=== PATIENT | male | born 1960 | race Caucasian/White ===

== ENCOUNTER 2022-01-05 08:11 | Emergency (ER) | payer SELFPAY ==
[~2022-01-05] VITALS: Ht 177.8 cm; Wt 90.3 kg
--- NOTE | 2022-01-05 08:11 | NUR ---
Patient BIBA to bed 09 at this time.
[2022-01-05 08:19] VITALS: BP 141/74
[2022-01-05] MEDS ORDERED: SPIR50TA PO (09:09)
[2022-01-05] MEDS ORDERED: FURO-572 PO (09:09)
--- NOTE | 2022-01-05 09:20 | NUR ---
61/M KAROLINE FROM [facility]. PER EMS PATIENT HAD 911 CALLED STATING ABDOMINAL PAIN AND DISTENTION X4 DAYS. PATIENT ADMITS EXTENSIVE HISTORY OF ALCOHOL ABUSE, STATING LAST DRINK WAS ONE WEEK AGO. PATIENT DENIES N/V/D, REPORTS HX OF RECEIVING A PARACENTESIS. PATIENT DENIES CP, SOB OR URINARY SYMPTOMS. ABDOMEN APPEARS DISTENDED AND FIRM, PATIENT REPORTS 8/10 PAIN THAT WORSENS WTH MOVEMENT.
[2022-01-05 09:40] VITALS: BP 115/67
--- NOTE | 2022-01-05 09:41 | NUR ---
Patient discharged with v/s stable. Written and verbal after care instructions given FOR ASCITES and explained. Patient alert, oriented and verbalized understanding of instructions. Ambulatory with steady gait. All questions addressed prior to discharge. ID band removed. Patient advised to follow up with PMD. Rx of LASIX AND SPIRONLACTONE given. Patient educated on indication of medication including possible reaction and side effects. Opportunity to ask questions provided and answered.
== END 2022-01-05 09:41 | disposition home or self-care (01) ==
LOC: MED 08:11
DX: K70.31 Alcoholic cirrhosis of liver with ascites (principal); K42.9 Umbilical hernia without obstruction or gangrene; Z79.899 Other long term (current) drug therapy
CPT/HCPCS: 49083; 99285

== ENCOUNTER 2022-01-08 17:42 | Inpatient (IN) | payer MEDICAID ==
[~2022-01-08] VITALS: Ht 177.8 cm; Wt 89.8 kg
[~2022-01-08 17:42] MED LIST: FURO-572 PO; SPIR50TA PO
[2022-01-08 17:50] VITALS: BP 94/85
[2022-01-08] MEDS ORDERED: FURO-572 PO (18:14)
[2022-01-08] MEDS ORDERED: SPIR50TA PO (18:14)
[2022-01-08 19:04] LABS: BASOPHILS # (AUTO) 0.1 K/uL (0.00-0.22); BASOPHILS % (AUTO) 1.2 % (0.0-2.0); EOSINOPHILS # (AUTO) 0.2 K/uL (0-0.4); EOSINOPHILS % (AUTO) 1.5 % (0.0-4.0); LYMPHOCYTES % (AUTO) 8.7 % (20.5-51.1); MEAN CORPUSCULAR HEMOGLOBIN 38 pg (27-31); MEAN CORPUSCULAR HGB CONC 34 g/dL (33-37); MEAN CORPUSCULAR VOLUME 111.3 fL (80-94); MONOCYTES # (AUTO) 0.7 K/uL (0.8-1.0); MONOCYTES % (AUTO) 6.1 % (1.7-9.3); NEUTROPHILS # (AUTO) 9.1 K/uL (1.8-7.7); NEUTROPHILS % (AUTO) 82.5 % (42.2-75.2); PLATELET COUNT (AUTO) 91 K/uL (140-450); RED BLOOD CELL COUNT(AUTO) 1.57 MIL/uL (4.20-6.10); RED CELL DISTRIBUTION WIDTH 19.7 % (11.6-13.7)
[2022-01-08 19:07] LABS: HEMATOCRIT 17.5 % (36-52); HEMOGLOBIN 5.9 g/dL (12.0-18.0)
--- NOTE | 2022-01-08 19:09 | NUR ---
Dr. Francisco examining patient.
--- NOTE | 2022-01-08 19:12 | NUR ---
NOTIFIED RAD DEPT OF STAT CT PER DR. IRAHETA
--- NOTE | 2022-01-08 19:17 | NUR ---
PT TAKEN TO CT
[2022-01-08 19:20] LABS: ALBUMIN 1.4 g/dL (3.4-5.0); ANION GAP 9.5 (8-16); CARBON DIOXIDE 21.7 mmol/L (21-32); POTASSIUM 3.2 mmol/L (3.5-5.1); PROTHROMBIN TIME 20.4 secs (10.8-13.4); TOTAL BILIRUBIN 8.2 mg/dL (0.0-1.0)
--- NOTE | 2022-01-08 19:24 | NUR ---
Pt report given to Karl BUENROSTRO. Transfer of care at this time.
--- NOTE | 2022-01-08 19:25 | NUR ---
61 y/o male, homeless, biba for abd pain and distention. pt was prevously seen here on 01/05/22 for same s/s, pt states his puncture wound where he had abd drained opened and started to bleed. en route ems reports 56cc blood loss. skin is yellow/warm/dry. a&o x4, unable to ambulate at this time. lungs clear bl, heart rate even and regular. pt denies any fever, cp, sob, or cough at this time. pt states pain is 10/10 at this time. patient positioned for comfort. hob elevated. bed down. ermd made aware of pt. ns 0.9 1000ml bolus given enroute through 18g Left AC. pmh: chronic etoh use, cirrhosis nka med: lasix 20mg, aldactone 50mg
--- NOTE | 2022-01-08 19:31 | NUR ---
PT BACK FROM CT
[2022-01-08] MEDS ORDERED: OCTREOTIDE ACETATE 100 MCG/ML VIAL IV STA (19:58)
[2022-01-08] MEDS ORDERED: PHYTONADIONE 10 MG in NACL 0.9% 50 ML IV ONE (20:00)
[2022-01-08] MEDS ORDERED: PANTOPRAZOLE 40 MG INJ VIAL IVP ONE (20:00)
[2022-01-08] MEDS ORDERED: OCTREOTIDE ACETATE 1.25 MG in NACL 0.9% 250 ML IV SCH (20:00)
--- NOTE | 2022-01-08 20:13 | NUR ---
COVID/SUNDAR SWAB COLLECTED AND WALKED TO LAB
--- NOTE | 2022-01-08 20:14 | NUR ---
BLOOD TRANFUSION CONSENT SIGNED
--- NOTE | 2022-01-08 20:19 | NUR ---
[facility] AT BEDSIDE
--- NOTE | 2022-01-08 20:36 | NUR ---
Patient will be admitted to care of DR PEREZ. Admited to ICU. Will go to room 1. Belongings list completed. Report to PORTER BARRY.
[2022-01-08 20:38] LABS: BASOPHILS # (AUTO) 0.1 K/uL (0.00-0.22); BASOPHILS % (AUTO) 0.6 % (0.0-2.0); EOSINOPHILS # (AUTO) 0.2 K/uL (0-0.4); EOSINOPHILS % (AUTO) 1.4 % (0.0-4.0); LYMPHOCYTES # (AUTO) 1.6 K/uL (2.0-11.5); LYMPHOCYTES % (AUTO) 14.2 % (20.5-51.1); MEAN CORPUSCULAR HEMOGLOBIN 38 pg (27-31); MEAN CORPUSCULAR HGB CONC 34 g/dL (33-37); MONOCYTES # (AUTO) 0.9 K/uL (0.8-1.0); MONOCYTES % (AUTO) 8.2 % (1.7-9.3); NEUTROPHILS # (AUTO) 8.5 K/uL (1.8-7.7); NEUTROPHILS % (AUTO) 75.6 % (42.2-75.2); PLATELET COUNT (AUTO) 95 K/uL (140-450); RED BLOOD CELL COUNT(AUTO) 1.48 MIL/uL (4.20-6.10); RED CELL DISTRIBUTION WIDTH 18.9 % (11.6-13.7); WHITE BLOOD COUNT (AUTO) 11.3 K/uL (4.8-10.8)
[2022-01-08] MEDS ORDERED: DOCUSATE SODIUM 100 MG GELCAP PO PRN (20:40)
[2022-01-08] MEDS ORDERED: ACETAMINOPHEN 325 MG TAB PO PRN (20:40)
[2022-01-08] MEDS ORDERED: ONDANSETRON 4 MG/2 ML VIAL IM/IVP PRN (20:40)
[2022-01-08] MEDS ORDERED: ZOLPIDEM 5 MG TAB PO PRN (20:40)
[2022-01-08] MEDS ORDERED: guaiFENesin DM 200/20 MG-10 ML 10 ML UDC PO PRN (20:40)
[2022-01-08] MEDS ORDERED: POTASSIUM CHLORIDE 10 MEQ TABER PO PRN (20:40)
[2022-01-08] MEDS ORDERED: HYDROcodone/APAP 7.5/325 MG 1 TAB PO PRN (20:40)
--- NOTE | 2022-01-08 20:50 | NUR ---
PT ARRIVED TO ICU BED 1, TRANSFERRED FROM ED VIA GURNEY ACCOMPANIED BY EMT AND RN, BEDSIDE REPORT RECEIVED, ASSUMED CARE. PT IN NO APPARENT ACUTE DISTRESS, AOX4, PERRLA, BRISK +3MM, BREATHING AT RA WITH BILATERAL EVEN LUNG EXPANSION, CLEAR BREATH SOUNDS UPON AUSCULTATION. BILATERAL 18 G AC PRESENT. SKIN NON INTACT WITH OPEN NON HEALING WOUND TO RIGHT ABDOMINAL AREA WHERE PT HAD PARACENTESIS DONE A FEW DAYS AGO, MULTIPLE SCABS IN BLE WHICH PT ADMITS TO PREVIOUS DRUG USE WITH IV DRUGS, PT ALSO STATES HE SMOKES OTHER DRUGS THAT ARE "NEW" BUT DOES NOT RECALL WHAT THEY ARE. JAUNDICED SKIN NOTED THROUGHOUT THE BODY INCLUDING SCLERAS. PT CONTINENT. PROVIDED PT WITH BED BATH, ALL COMFORT MEASURES OFFERED. ALL SAFETY MEASURES IN PLACE, CALL LIGHT WITHIN REACH, BED LOCKED AT LOWEST POSITION. WILL CONTINUE TO CLOSELY MONITOR AND FOLLOW POC.
[2022-01-08 20:55] LABS: PROTHROMBIN TIME 19.6 secs (10.8-13.4)
[2022-01-08 21:00] VITALS: BP 87/48
[2022-01-08] MEDS: NACL 0.9% 1,000 ML IV SCH (21:00)
[2022-01-08 21:04] LABS: HEMATOCRIT 16.5 % (36-52); HEMOGLOBIN 5.6 g/dL (12.0-18.0)
[2022-01-08 21:07] LABS: ANION GAP 10.9 (8-16); CARBON DIOXIDE 22.4 mmol/L (21-32); POTASSIUM 3.3 mmol/L (3.5-5.1)
[2022-01-08] MEDS ORDERED: PANTOPRAZOLE 40 MG INJ VIAL ONE (21:12)
[2022-01-08] MEDS: PANTOPRAZOLE 80 MG in NACL 0.9% 100 ML IVP SCH (21:21)
[2022-01-08 21:23] LABS: AMYLASE 75 U/L (25-115); CHOL/HDL RATIO 2.4 (1-4.5); FREE T4 (FREE THYROXINE) 1.18 ng/dL (0.76-1.46); HDL CHOLESTEROL 20 mg/dL (40-60); LDL (CALC) 20 mg/dL (60-100); LIPASE 112 U/L (73-393); MAGNESIUM 1.9 mg/dL (1.8-2.4); PHOSPHORUS 3.3 mg/dL (2.5-4.9); THYROID STIMULATING HORMONE 1.59 uIU/mL (0.34-3.74); TRIGLYCERIDES 39 mg/dL (30-150)
[2022-01-08] MEDS ORDERED: PHYTONADIONE 10 MG/ML AMP ONE (21:33)
--- NOTE | 2022-01-08 21:35 | NUR ---
1 UNIT OF PRBC STARTED AT 2120, PT IN NO APPARENT ACUTE DISTRESS, DENIES ANY PAIN, VSS, NO RASH NOTED, NO ELEVATED TEMPERATURE. PT DENIES ANY SOB OR DISCOMFORT. ALL SAFETY MEASURES IN PLACE, WILL CONTINUE TO CLOSELY MONITOR AND FOLLOW POC.
[2022-01-08] MEDS ORDERED: OCTREOTIDE ACETATE 1000 MCG/5 ML VIAL ONE (21:37)
[2022-01-08 22:00] VITALS: BP 94/59
[2022-01-08] MEDS: OCTREOTIDE ACETATE 1.25 MG in NACL 0.9% 250 ML IV SCH (22:49)
--- NOTE | 2022-01-08 23:20 | NUR ---
1 UNIT OF PRBC CONTINUES RUNNING, PT IN NO APPARENT ACUTE DISTRESS, DENIES PAIN OR SOB, VSS. PT CURRENTLY SPEAKING TO VIJAY EUGENE ON THE PHONE WHO CALLED AND REQUESTED PT UPDATE. VIJAY WAS PROVIDED WITH UPDATE AND ALL QUESTIONS ANSWERED. WILL CONTINUE TO CLOSELY MONITOR AND FOLLOW POC.
--- NOTE | 2022-01-08 23:46 | NUR ---
URINE SPECIMEN FOR URINALYSIS AND URINE DRUG SCREEN SENT TO LAB
[2022-01-08 23:50] LABS: APPEARANCE,URINE SL CLOUDY (CLEAR); BILIRUBIN,URINE 3+ (NEGATIVE); BLOOD, URINE 1+ (NEGATIVE); COLOR,URINE BROWN (YELLOW); LEUKOCYTE ESTERASE ,URINE NEGATIVE (NEGATIVE); NITRITE, URINE POSITIVE (NEGATIVE); UGLUCOSE TRACE (NEGATIVE)
[2022-01-09] VITALS (17 sets, daily range): BP systolic 84–139; BP diastolic 49–77
--- NOTE | 2022-01-09 | NUR ---
SECOND UNIT OF PRBC STARTED AT 2355, PT IN NO APPARENT ACUTE DISTRESS, CONTINUES A0X4, BREATHING EVEN AND UNLABORED, DENIES PAIN. SECONDARY NURSE WITNESSED AND SIGNED BLOOD PRODUCT FORMAT. WILL CONTINUE TO CLOSELY MONITOR AND FOLLOW POC.
[2022-01-09 00:36] LABS: BARBITURATE, URINE NEGATIVE ng/ml (NEG <=200); BENZODIAZEPINE, URINE NEGATIVE ng/mL (NEG <=200); CANNABINOID, URINE NEGATIVE ng/mL (NEG <=50); COCAINE, URINE NEGATIVE ng/mL (NEG <=300); OPIATE, URINE NEGATIVE ng/mL (NEG <=2000); PHENCYCLIDINE SCREEN,URINE NEGATIVE ng/mL (NEG <=25)
[2022-01-09 00:39] LABS: RBC,URINE 0-5 /HPF (0-5); WBC,URINE 0-5 /HPF (0-5)
--- NOTE | 2022-01-09 01:25 | NUR ---
ONGOING BLOOD TRANSFUSION, NO UNTOWARD REACTIONS NOTED.PT DENIES PAIN, ITCHINESS,SOB.WILL CONTINUE TO CLOSELY MONITOR PT
--- NOTE | 2022-01-09 02:35 | NUR ---
SECOND UNIT OF PRBC COMPLETED AT 0215, NO REACTIONS NOTED, PT DENIES SOB, PAIN, OR ANY REACTION. NO SIGNS OF ACUTE DISTRESS, VSS. ALL SAFETY MEASURES IN PLACE, WILL CONTINUE TO CLOSELY MONITOR AND FOLLOW POC.
--- NOTE | 2022-01-09 04:00 | NUR ---
PT ASLEEP;EASILY AROUSABLE.NO S/SX OF BLEEDING NOTED.NO SOB ON ROOM AIR.DENIES PAIN
[2022-01-09] MEDS ORDERED: PANTOPRAZOLE 40 MG INJ VIAL ONE (04:54)
[2022-01-09] MEDS: PANTOPRAZOLE 80 MG in NACL 0.9% 100 ML IVP SCH (04:56)
[2022-01-09 05:18] LABS: ANION GAP 10.7 (8-16); CARBON DIOXIDE 23.4 mmol/L (21-32); POTASSIUM 4.1 mmol/L (3.5-5.1)
[2022-01-09 05:22] LABS: BASOPHILS % (AUTO) 0.2 % (0.0-2.0); EOSINOPHILS # (AUTO) 0.3 K/uL (0-0.4); EOSINOPHILS % (AUTO) 3.2 % (0.0-4.0); HEMOGLOBIN 6.6 g/dL (12.0-18.0); LYMPHOCYTES # (AUTO) 1.3 K/uL (2.0-11.5); LYMPHOCYTES % (AUTO) 16.6 % (20.5-51.1); MEAN CORPUSCULAR HEMOGLOBIN 36 pg (27-31); MEAN CORPUSCULAR HGB CONC 35 g/dL (33-37); MEAN CORPUSCULAR VOLUME 102.4 fL (80-94); MONOCYTES # (AUTO) 0.7 K/uL (0.8-1.0); MONOCYTES % (AUTO) 9.4 % (1.7-9.3); NEUTROPHILS # (AUTO) 5.6 K/uL (1.8-7.7); NEUTROPHILS % (AUTO) 70.6 % (42.2-75.2); PLATELET COUNT (AUTO) 62 K/uL (140-450); RED BLOOD CELL COUNT(AUTO) 1.83 MIL/uL (4.20-6.10); RED CELL DISTRIBUTION WIDTH 24.7 % (11.6-13.7); WHITE BLOOD COUNT (AUTO) 7.9 K/uL (4.8-10.8)
[2022-01-09 05:44] LABS: HEMATOCRIT 18.7 % (36-52)
--- NOTE | 2022-01-09 06:53 | NUR ---
[address] PEREZ.
--- NOTE | 2022-01-09 07:05 | NUR ---
RECEIVED BEDSIDE REPORT FROM ASHA WADE RN FOR CONTINUITY OF CARE. PT IS LYING IN THE BED, EYES OPEN, PERRLA, AAOX4. ABLE TO MAKE NEEDS KNOWN. ON ROOM AIR, RESPIRATIONS EVEN AND UNLABORED. SR ON THE MONITOR. BOWEL SOUNDS ACTIVE, CONTINENT OF BOWEL AND BLADDER, URINAL AT BEDSIDE. UMBILICAL HERNIA NOTED. PARACENTESIS SITE CLEAN, HEMATOMA TO R ABDOMEN. 18G TO RAC, PATENT INTACT, INFUSING PROTONIX AT 8 MG/HR, SANDOSTATIN AT 50 MCG/HR, NS AT 60 ML/HR. 18G TO LAC PATENT INTACT. SCABS TO BLE. MILD WEAKNESS NOTED. ON STANDARD PRECAUTIONS. ALL SAFETY PRECAUTIONS MET. CALL LIGHT WITHIN REACH. INITIAL ASSESSMENT COMPLETE, WILL CONTINUE TO CLOSELY MONITOR.
--- NOTE | 2022-01-09 07:15 | NUR ---
REPORT GIVEN TO DAY SHIFT NURSE FOR CONTINUITY OF CARE. PT IN NO ACUTE DISTRESS.
[2022-01-09] MEDS: PANTOPRAZOLE 40 MG TABEC PO SCH (08:26)
--- NOTE | 2022-01-09 08:40 | NUR ---
PRETRANSFUSION VSS. DUAL RN WITNESS WITH RICKY RN. WILL CONTINUE TO MONITOR AT BEDSIDE.
--- NOTE | 2022-01-09 08:42 | NUR ---
SEEN AND EXAMINED BY DR PEREZ. ORDERED DC PROTONIX DRIP AFTER INFUSION COMPLETE.
--- NOTE | 2022-01-09 08:52 | NUR ---
DC PLANN[age] YRS OLD MALE HOMELESS PATIENT WAS ADMITTED FROM ER WITH A DX OF LIVER CIRRHOSIS AND SYMPTOMATIC ANEMIA PATIENT HAS A HX OF ALCOHOL ABUSE CIRRHOSIS. CXR SHOWED BIBASAL ATELECTASIS. RAPID COVID TEST NEGATIVE. CT ABD SHOWED CIRRHOSIS . H/H 5.9/17.5 TRANSFUSED 2 UNITS PRBC LATEST H/H 6.6/18.9. ADMINISTERED SANDOSTATIN AND PROTONICS DRIP. ON ROOM AIR SATING 97% . CONSULTED WITH PULMO AND GI. DC PLAN SUPERVISOR PRE WAVE TO EVALUATE FOR HOMELESSNESS AND SAFE DISCHARGE. CM TO FOLLOW
--- NOTE | 2022-01-09 08:55 | NUR ---
15 MINUTES AFTER TRANSFUSION START. VSS, NO S/S OF TRANSFUSION REACTION. WILL CONTINUE TO MONITOR AT BEDSIDE.
--- NOTE | 2022-01-09 11:00 | NUR ---
TRANSFUSION ENDED. VSS. NO S/S TRANSFUSION REACTION. WILL CONTINUE TO CLOSELY MONITOR.
--- NOTE | 2022-01-09 13:00 | NUR ---
PT RESTING. RESPIRATIONS EVEN AND UNLABORED. WILL CONTINUE TO CLOSELY MONITOR.
[2022-01-09] MEDS: NACL 0.9% 1,000 ML IV SCH (13:51)
[2022-01-09] MEDS: PIPERACILLIN/TAZOBACTAM 3.375 GM in DEXTROSE 5% 50 ML IV SCH ×2 (13:51→21:44)
--- NOTE | 2022-01-09 15:00 | NUR ---
PT WATCHING TV. NO S/S DISTRESS. WILL CONTINUE TO MONITOR.
--- NOTE | 2022-01-09 15:14 | NUR ---
PATIENT HAS BEEN SCREENED AND CATEGORIZED HIGH NUTRITION RISK. PATIENT WILL BE SEEN WITHIN 1-2 DAYS OF ADMISSION. / SANJAY KIMBLE RD
--- NOTE | 2022-01-09 16:30 | NUR ---
SEEN AND EXAMINED BY DR MCKENNA. ORDERS RECEIVED.
[2022-01-09 16:43] LABS: BASOPHILS % (AUTO) 0.5 % (0.0-2.0); EOSINOPHILS # (AUTO) 0.3 K/uL (0-0.4); EOSINOPHILS % (AUTO) 3.3 % (0.0-4.0); HEMOGLOBIN 7.6 g/dL (12.0-18.0); LYMPHOCYTES # (AUTO) 1.4 K/uL (2.0-11.5); LYMPHOCYTES % (AUTO) 17.2 % (20.5-51.1); MEAN CORPUSCULAR HEMOGLOBIN 35 pg (27-31); MEAN CORPUSCULAR HGB CONC 35 g/dL (33-37); MEAN CORPUSCULAR VOLUME 100.4 fL (80-94); MONOCYTES # (AUTO) 0.8 K/uL (0.8-1.0); MONOCYTES % (AUTO) 9.6 % (1.7-9.3); NEUTROPHILS # (AUTO) 5.8 K/uL (1.8-7.7); NEUTROPHILS % (AUTO) 69.4 % (42.2-75.2); PLATELET COUNT (AUTO) 75 K/uL (140-450); RED BLOOD CELL COUNT(AUTO) 2.19 MIL/uL (4.20-6.10); RED CELL DISTRIBUTION WIDTH 25.6 % (11.6-13.7); WHITE BLOOD COUNT (AUTO) 8.3 K/uL (4.8-10.8)
--- NOTE | 2022-01-09 19:10 | NUR ---
ENDORSED TELEPHONE REPORT TO TELE NIGHT RN FOR CONTINUITY OF CARE.
--- NOTE | 2022-01-09 19:55 | NUR ---
TRANSFER OUT TO TELE 106 B PER WHEELCHAIR BY CEE (SALESFORCE SPECIALIST).
--- NOTE | 2022-01-09 20:45 | NUR ---
RECEIVED PT REPORT FROM [facility] ICU NURSE. PT TRANSFERED TO [facility] VIA W/C BY MEDICAL SUPPLY TECHNICIAN CEE. PT IS STABLE. IN BED. A&OX4. DENIES PAIN. ON ROOM AIR. RR EVEN AND UNLABORED WITH EQUAL CHEST RISE. HAS R ABD PARACENTESIS SITE. PARACENTESIS WAS DONE ON 01/05/2022. SKIN SURROUNDING SITE IS PINK AND WARM. HAS UMBILICAL HERNIA.IV 18G RAC HAS SANDOSTATIN INFUSING @50MCG OR 10CC/HR. ALSO IV 18G LAC INFUSING NS@60CC/HR. ZOSYN IVPB Q8HRS.PT IS AMBULATORY AND CONTINENT OF BOWEL AND BLADDER. ALL SAFETY MEASURES IN PLACE .CALL LIGHT WITHIN REACH. WILL CONTINUE TO MONITOR.
[2022-01-09] MEDS: FERROUS SULFATE 300 MG/5 ML UDC GT SCH (21:43)
[2022-01-09] MEDS: LACTULOSE 20 GM/30 ML UDC PO SCH (21:44)
[2022-01-09] MEDS: OCTREOTIDE ACETATE 1.25 MG in NACL 0.9% 250 ML IV SCH (22:14)
[2022-01-10] VITALS: BP_SYST 88; BP_SYST 93; BP_DIAS 44; BP_DIAS 53
--- NOTE | 2022-01-10 00:30 | NUR ---
FREQ ROUNDS. CHECKED PT STABLE AND ASLEEP IN BED. RR EVEN AND UNLABORED WITH EQUAL CHEST RISE. ALL SAFETY MEASURES IN PLACE. BED IN LOW AND LOCKED POSITION. CALL LIGHT WITHIN REACH. WILL CONTINUE TO MONITOR.
[2022-01-10 04:00] VITALS: BP 90/54
[2022-01-10] MEDS: PIPERACILLIN/TAZOBACTAM 3.375 GM in DEXTROSE 5% 50 ML IV SCH ×3 (04:00→21:00)
--- NOTE | 2022-01-10 05:30 | NUR ---
FREQ ROUNDS PT SLEEPING RR EVEN AND UNLABORED. BED LOW AND LOCKED. PT ABLE TO TURN SELF. "I'LL GO TO THE BATHROOM LATER . RIGHT NOW I WANT TO REST." IV RAC 22G INFUSING SANDOSTATIN @ 10ML/HR. IV LAC INFUSING NS @60CC/HR. BOTH IV'S FLUSHED AND PATENT. R ABD PARACENTESIS SITE DRESSING D&I. ZOSYN IVPB INFUSED. NAD. ALL SAFETY MEASURES IN PLACE. WILL CONTINUE TO MONITOR.
--- NOTE | 2022-01-10 06:50 | NUR ---
PT UP TO BATHROOM WITH ASSIST OF ONE PERSON AND CANE. LFA 22G IV PULLED OUT. ATTEMPTED IV RESTART X1 WITHOUT SUCCESS. ENDORSE TO DAY SHIFT TO F/U AND RESTART IV FOR NS @60CC/HR. IV START ITEMS AT BEDSIDE. RAC 18G IV STILL PATENT INFUSING SANDOSTATIN CONTINUOUS DRIP AT 10CC/HR. PT BACK IN BED . ALL SAFETY MEASURES IN PLACE. WILL CONTINUE TO MONITOR.
--- NOTE | 2022-01-10 07:15 | NUR ---
RECEIVED REPORT FROM PRODUCT MANAGENT INTERN NURSE.PT IS AMBULATORY, AND USES CANE. A&OX4. IV SITE ON R AC, 18G, AND IV ON THE LEFT ARM GOT INFILTRATED PER PRODUCT MANAGENT INTERN NURSE. WILL START NEW IV LINE ON LEFT ARM. CALL LIGHT WITHIN REACH, ALL SAFETY MEASURES ENFORCED. DISCUSSED PLAN OF CARE.
[2022-01-10 07:32] LABS: BASOPHILS % (AUTO) 0.3 % (0.0-2.0); EOSINOPHILS # (AUTO) 0.3 K/uL (0-0.4); EOSINOPHILS % (AUTO) 4.2 % (0.0-4.0); LYMPHOCYTES % (AUTO) 13.6 % (20.5-51.1); MEAN CORPUSCULAR HEMOGLOBIN 35 pg (27-31); MEAN CORPUSCULAR HGB CONC 35 g/dL (33-37); MEAN CORPUSCULAR VOLUME 100.8 fL (80-94); MONOCYTES # (AUTO) 0.8 K/uL (0.8-1.0); MONOCYTES % (AUTO) 11.6 % (1.7-9.3); NEUTROPHILS # (AUTO) 5.1 K/uL (1.8-7.7); NEUTROPHILS % (AUTO) 70.3 % (42.2-75.2); PLATELET COUNT (AUTO) 60 K/uL (140-450); RED BLOOD CELL COUNT(AUTO) 1.84 MIL/uL (4.20-6.10); RED CELL DISTRIBUTION WIDTH 25.7 % (11.6-13.7); WHITE BLOOD COUNT (AUTO) 7.3 K/uL (4.8-10.8)
[2022-01-10 07:42] LABS: HEMATOCRIT 18.5 % (36-52); HEMOGLOBIN 6.5 g/dL (12.0-18.0)
--- NOTE | 2022-01-10 07:42 | NUR ---
RECEIVED REPORT FROM [employer], PT HGB IS AT 6.5. RELAYED MESSAGE TO
--- NOTE | 2022-01-10 07:54 | NUR ---
DR ORDERED 1 UNIT PRBC. WILL GIVE 1 UNIT PRBC.
[2022-01-10 08:00] VITALS: BP 98/51
[2022-01-10] MEDS: LACTULOSE 20 GM/30 ML UDC PO SCH ×2 (09:00→21:00)
[2022-01-10 09:06] LABS: T3 UPTAKE 38 % (24-39); T4 (THYROXINE) 5.5 ug/dL (4.5-12.0)
[2022-01-10] MEDS: PANTOPRAZOLE 40 MG TABEC PO SCH (10:00)
[2022-01-10] MEDS: SPIRONOLACTONE 50 MG TAB PO SCH (10:01)
[2022-01-10] MEDS: FUROSEMIDE 20 MG TAB PO SCH (10:01)
[2022-01-10] MEDS: FERROUS SULFATE 300 MG/5 ML UDC GT SCH ×2 (10:01→21:00)
--- NOTE | 2022-01-10 11:05 | NUR ---
STARTED 1 UNIT RBC TRANSFUSION. PT V/S RECORDED AND IS STABLE. WILL CHECK V/S EVERY 15MINS(4X), AND AN HOUR AFTER.
--- NOTE | 2022-01-10 11:20 | NUR ---
PT HAS NO SIGNS OF BLOOD TRANSFUSION REACTIONS, V/S STABLE. WILL CONTINUE TO MONITOR.
--- NOTE | 2022-01-10 11:27 | NUR ---
OPTICAL GOODS DRILL OPERATOR LANI ASSESSED PT, AND PER 'S ORDER, CHANGED PT DIET TO LOW SODIUM.
--- NOTE | 2022-01-10 11:40 | NUR ---
01/10/22 RD INITIAL ASSESSMENT COMPLETED PLEASE REFER TO NUTRITION ASSESSMENT UNDER CARE ACTIVITY FOR ESTIMATED NUTRITIONAL NEEDS. RD RECOMMENDATIONS: 1. RECOMMEND CHANGING PTS DIET TO LOW NA DIET D/T END STAGE LIVER CIRRHOSIS. 2. RD WILL F/U 7 DAYS; LOW RISK. DILEEP GARCIA, RD
[2022-01-10 12:00] VITALS: BP 104/49
--- NOTE | 2022-01-10 12:00 | NUR ---
PT V/S WERE STABLE AT THIS TIME. WILL CONTINUE TO MONITOR.
[2022-01-10] MEDS: NACL 0.9% 1,000 ML IV SCH (13:54)
--- NOTE | 2022-01-10 14:10 | NUR ---
BLOOD TRANSFUSION ENDED. PT VITAL SIGNS WERE STABLE.
[2022-01-10 16:00] VITALS: BP 95/54
--- NOTE | 2022-01-10 17:30 | NUR ---
COLLECTED PT'S URINE SAMPLE AND SENT TO LABS.
--- NOTE | 2022-01-10 19:10 | NUR ---
GAVE REPORT TO SCRAP HOOKER NURSE. DISCUSSED PLAN OF CARE. PT IS STABLE.
[2022-01-10 20:00] VITALS: BP 117/59
--- NOTE | 2022-01-10 22:00 | NUR ---
PT IS ON STABLE CONDITION AND SLEEPING WELL.
[2022-01-10 22:49] LABS: HEMOGLOBIN 7.5 g/dL (12.0-18.0)
[2022-01-11] VITALS: BP 91/50
[2022-01-11 04:00] VITALS: BP 107/63
[2022-01-11] MEDS: PIPERACILLIN/TAZOBACTAM 3.375 GM in DEXTROSE 5% 50 ML IV SCH ×3 (05:55→20:13)
[2022-01-11 06:41] LABS: BASOPHILS % (AUTO) 0.3 % (0.0-2.0); EOSINOPHILS # (AUTO) 0.2 K/uL (0-0.4); EOSINOPHILS % (AUTO) 2.1 % (0.0-4.0); HEMOGLOBIN 8.3 g/dL (12.0-18.0); LYMPHOCYTES # (AUTO) 1.5 K/uL (2.0-11.5); LYMPHOCYTES % (AUTO) 20.1 % (20.5-51.1); MEAN CORPUSCULAR HEMOGLOBIN 35 pg (27-31); MEAN CORPUSCULAR HGB CONC 34 g/dL (33-37); MEAN CORPUSCULAR VOLUME 100.9 fL (80-94); MONOCYTES % (AUTO) 13.7 % (1.7-9.3); NEUTROPHILS # (AUTO) 4.8 K/uL (1.8-7.7); NEUTROPHILS % (AUTO) 63.8 % (42.2-75.2); PLATELET COUNT (AUTO) 67 K/uL (140-450); RED BLOOD CELL COUNT(AUTO) 2.38 MIL/uL (4.20-6.10); RED CELL DISTRIBUTION WIDTH 25.3 % (11.6-13.7); WHITE BLOOD COUNT (AUTO) 7.5 K/uL (4.8-10.8)
[2022-01-11 07:10] LABS: ANION GAP 10.7 (8-16); CARBON DIOXIDE 22.6 mmol/L (21-32); CREATININE 1.1 mg/dL (0.6-1.3); POTASSIUM 3.3 mmol/L (3.5-5.1)
--- NOTE | 2022-01-11 07:24 | NUR ---
PT IS ON STABLE CONDITION, IV SALINE LOCK INTACT AND PATENT, NO SIGN/SYMPTOM OF INFECTION ON IV SITE. IVF IS INFUSING WELL. ENDORSED TO DAY SHIFT NURSE FOR CONTINUITY OF PATIENT CARE.
--- NOTE | 2022-01-11 07:25 | NUR ---
RECEIVED REPORT FROM BLOWER ROOM ATTENDANT NURSE.PT IS AWAKE, A&OX4. IV SITE ON RIGHT AC, 18G, INFUSING AT 10ML/HR NS. CALL LIGHT WITHIN REACH, ALL SAFETY MEASURES DONE. DISCUSSED PLAN OF CARE.
[2022-01-11 08:00] VITALS: BP 123/75
--- NOTE | 2022-01-11 08:18 | NUR ---
PT K IS LOW AT 3.3. RELAYED TO
--- NOTE | 2022-01-11 08:21 | NUR ---
DR RAZO ORDERED K-DUR 40MEQ. WILL GIVE PT K-DUR, PER DR'S ORDER.
[2022-01-11] MEDS: LACTULOSE 20 GM/30 ML UDC PO SCH ×2 (09:26→20:13)
[2022-01-11] MEDS: PANTOPRAZOLE 40 MG TABEC PO SCH (09:26)
[2022-01-11] MEDS: POTASSIUM CHLORIDE 10 MEQ TABER PO PRN (09:26)
[2022-01-11] MEDS: FUROSEMIDE 20 MG TAB PO SCH (09:26)
[2022-01-11] MEDS: SPIRONOLACTONE 50 MG TAB PO SCH (09:26)
[2022-01-11] MEDS: FERROUS SULFATE 300 MG/5 ML UDC GT SCH ×2 (09:27→20:13)
[2022-01-11 12:00] VITALS: BP 123/75
[2022-01-11] MEDS ORDERED: POTASSIUM CHLORIDE 10 MEQ TABER PO SCH (12:10)
--- NOTE | 2022-01-11 12:37 | NUR ---
ASSISTED PT TO THE RESTROOM. PT DENIES PAIN AT THIS TIME.
--- NOTE | 2022-01-11 13:56 | NUR ---
CALLED PHARMACY, TALKED WITH KACEY. ASKED IF I CAN HAVE ANOTHER 1300 [address] MED, SINCE THE 1300 MED DUE FOR TODAY HAS BEEN GIVEN BY SOMEONE ELSE IN THE IN THE MORNING. KACEY WILL BRING ANOTHER TAZOBACTAM.
[2022-01-11 16:00] VITALS: BP 99/45
--- NOTE | 2022-01-11 16:00 | NUR ---
PT LYING ON HIS BED AWAKE, NO SIGNS OF DISTRESS AT THIS TIME.
--- NOTE | 2022-01-11 19:10 | NUR ---
GAVE REPORT TO SDET NURSE. PT IS STABLE.
--- NOTE | 2022-01-11 19:15 | NUR ---
RECEIVED REPORT FROM AM NURSE FOR CONTINUITY OF CARE.PT IS STABLE
[2022-01-11 20:00] VITALS: BP 98/52
--- NOTE | 2022-01-11 21:30 | NUR ---
ALL ROUTINE MEDICATIONS GIVEN, NO ADVERSE REACTIONS NOTED
[2022-01-12] VITALS: BP 94/52
--- NOTE | 2022-01-12 | NUR ---
PATIENT ASLEEP ,RESPIRATION EVEN AND UNLABORED ,NO DISTRESS NOTED
--- NOTE | 2022-01-12 03:00 | NUR ---
PATIENT ASLEEP,BREATHING EVEN AND UNLABORED,NO DISTRESS NOTED
[2022-01-12 04:00] VITALS: BP 102/63
[2022-01-12] MEDS: PIPERACILLIN/TAZOBACTAM 3.375 GM in DEXTROSE 5% 50 ML IV SCH ×2 (05:08→14:08)
--- NOTE | 2022-01-12 06:18 | NUR ---
PATIENT IS AWAKE,NO COMPLAIN OF PAIN NOTED,RESPIRATIONS EVEN AND UNLABORED
[2022-01-12 06:43] LABS: MAGNESIUM 1.8 mg/dL (1.8-2.4); PHOSPHORUS 2.9 mg/dL (2.5-4.9)
[2022-01-12 06:45] LABS: ANION GAP 8.4 (8-16); CARBON DIOXIDE 23.9 mmol/L (21-32); CREATININE 1.2 mg/dL (0.6-1.3); POTASSIUM 3.3 mmol/L (3.5-5.1)
[2022-01-12] MEDS: POTASSIUM CHLORIDE 10 MEQ TABER PO PRN (06:53)
--- NOTE | 2022-01-12 06:53 | NUR ---
GAVE KDUR 40MEQ TAB ,POTASSIUM LEVEL 3.3
--- NOTE | 2022-01-12 07:10 | NUR ---
RECEIVED REPORT FROM CHILDREN TEACHER NURSE FOR CONTINUITY OF CARE. PT IN BED RESTING AT THIS TIME. RESPIRATIONS ARE EVEN AND UNLABORED ON ROOM AIR. NO SIGNS OF DISTRESS NOTED. PT IS ALERT AND ORIENTED X4, ABLE TO FOLLOW COMMANDS. PT IS ON CARDIAC MONITORING, SINUS RHYTHM. PT IS CURRENTLY NPO, FOR POSSIBLE EGD LATER THIS AFTERNOON. LAST BOWEL MOVEMENT WAS THIS MORNING. PT HAS IV TO L AC, 20G. SKIN IS WARM, DRY, AND INTACT. CALL LIGHT WITHIN REACH. ALL SAFETY MEASURES IN PLACE. WILL CONTINUE TO MONITOR.
[2022-01-12 08:00] VITALS: BP 99/64
--- NOTE | 2022-01-12 08:00 | NUR ---
Patient's Plan of Care was discussed and reviewed with SUPERVISOR NATURAL GAS PLANT: LANCE VARGAS. WILL CONTINUE WITH CURRENT POC.
[2022-01-12 08:21] LABS: CORRECTED WHITE BLOOD COUNT 4.7 K/uL (4.5-11.0); WHITE BLOOD COUNT (AUTO) 4.7 K/uL (4.8-10.8)
[2022-01-12 08:22] LABS: HEMATOCRIT 19.9 % (36-52); HEMOGLOBIN 7.2 g/dL (12.0-18.0); RED BLOOD CELL COUNT(AUTO) 1.98 MIL/uL (4.20-6.10)
--- NOTE | 2022-01-12 08:22 | NUR ---
LAB CALLED TO REPORT CRITICAL VALUE OF HCT 19.9
[2022-01-12 08:23] LABS: MEAN CORPUSCULAR HEMOGLOBIN 36 pg (27-31); MEAN CORPUSCULAR HGB CONC 36 g/dL (33-37); MEAN CORPUSCULAR VOLUME 100.1 fL (80-94)
[2022-01-12 08:24] LABS: BASOPHILS % (AUTO) 0.8 % (0.0-2.0); EOSINOPHILS # (AUTO) 0.2 K/uL (0-0.4); EOSINOPHILS % (AUTO) 4.1 % (0.0-4.0); LYMPHOCYTES # (AUTO) 1.2 K/uL (2.0-11.5); LYMPHOCYTES % (AUTO) 26.2 % (20.5-51.1); MONOCYTES # (AUTO) 0.7 K/uL (0.8-1.0); MONOCYTES % (AUTO) 15.7 % (1.7-9.3); NEUTROPHILS # (AUTO) 2.5 K/uL (1.8-7.7); NEUTROPHILS % (AUTO) 53.2 % (42.2-75.2); PLATELET COUNT (AUTO) 64 K/uL (140-450)
[2022-01-12] MEDS: PANTOPRAZOLE 40 MG TABEC PO SCH (08:26)
[2022-01-12] MEDS: LACTULOSE 20 GM/30 ML UDC PO SCH ×2 (08:28→20:16)
[2022-01-12] MEDS: FERROUS SULFATE 300 MG/5 ML UDC GT SCH ×2 (08:28→20:15)
[2022-01-12] MEDS: SPIRONOLACTONE 50 MG TAB PO SCH (08:32)
[2022-01-12] MEDS: FUROSEMIDE 20 MG TAB PO SCH (08:33)
--- NOTE | 2022-01-12 08:33 | NUR ---
HELD MEDICATION, SPIRONOLACTONE AND LASIX, PER PARAMETERS. WILL CONTINUE TO MONITOR.
--- NOTE | 2022-01-12 08:38 | NUR ---
RECEIVED REPLY FROM DR PEREZ, NO NEW ORDERS. WILL CONTINUE TO MONITOR.
--- NOTE | 2022-01-12 11:03 | NUR ---
DID ROUNDS ON PT. PT IN ROOM WATCHING TELEVISION. RESPIRATIONS ARE EVEN AND UNLABORED. NO SIGNS OF DISTRESS NOTED. WILL CONTINUE TO MONITOR.
[2022-01-12 12:00] VITALS: BP 105/56
--- NOTE | 2022-01-12 12:00 | NUR ---
REASON FOR EVALUATION: RLQ ABDOMINAL WOUND AND SCABS ON LLE WOUND ASSESSMENT COMPLETED ON THIS 61 Y/O MALE ADMITTED TO MST UNIT FOR LIVER CIRRHOSIS AND SYMPTOMATIC ANEMIA. PATIENT IS HOMELESS. PAST MEDICAL HISTORY INCLUDES LIVER CIRRHOSIS, ETOH ABUSE, LIKELY CHF. ALL ABOVE INFORMATION WAS OBTAINED FROM THE ADMISSION H&P. LABS ARE WBC 4.7, H/H 7.2/19.9, GLUCOSE 113. PATIENT IS AAOX4, VERBAL, ABLE TO AMBULATES INDEPENDENTLY WITH STEADY GAIT. ORAL MUCOSAL MEMBRANES DRY. PLAN OF CARE AND PRESSURE PREVENTATIVE MEASURES DISCUSSED WITH PATIENT AND PRIMARY RN. PATIENT ADMITTED WITH MULTIPLE CLOSE SCABS ON LLE. COMORBIDITIES RELATED TO FURTHER SKIN BREAKDOWN SUCH IMPAIRED NUTRITION AND HOMELESSNESS. INTEGUMENTARY: - 0.2 x 0.2 x 0 CM PUNCTURE WOUND S/P PARACENTESIS 01/09/22, MINIMAL SEROUS DRAINAGE, NO ODOR. PERIWOUND INTACT. - MULTIPLE LLE CLOSED SCABS. NO DRAINAGE, NO ODOR. PERIWOUND INTACT, PINK. RECOMMENDATIONS: - CLEANSED WITH NS, PAT DRIED, COVERED WITH DRY DRESSING, AND SECURED WITH ISLAND DRESSING DAILY AND PRN IF SOILED. - KEEP SKIN DRY AND CLEAN AT ALL TIMES. - RD CONSULT RECOMMENDATIONS DISCUSSED WITH PRIMARY RN. WILL FOLLOW-UP PATIENT Q7-10 DAYS AND PRN. PLEASE CONTACT WOUND CARE NURSE FOR ANY CONCERNS AND CHANGES IN WOUND CONDITION.
--- NOTE | 2022-01-12 13:17 | NUR ---
OR TEAM ON UNIT TO QUILL WINDER PT FOR SCHEDULED EGD.
[2022-01-12] MEDS ORDERED: fentaNYL citrate 0.05 MG/ML VIAL ONE (13:27)
[2022-01-12] MEDS ORDERED: diphenhydrAMINE 50 MG/ML VIAL ONE (13:27)
[2022-01-12] MEDS ORDERED: MIDAZOLAM 5 MG/5 ML VIAL ONE (13:28)
[2022-01-12] MEDS: MIDAZOLAM 2 MG/2 ML VIAL IVP ONE ×2 (13:41→14:14)
[2022-01-12] MEDS: fentaNYL citrate 0.05 MG/ML VIAL IVP ONE ×2 (13:42→14:14)
--- NOTE | 2022-01-12 14:13 | NUR ---
PT BACK ON UNIT. NO S/S OF DISTRESS, OR PAIN. WILL CONTINUE TO MONITOR.
[2022-01-12 16:00] VITALS: BP 112/67
[2022-01-12] MEDS ORDERED: PHYTONADIONE 10 MG in NACL 0.9% 50 ML IV SCH (16:00)
--- NOTE | 2022-01-12 16:10 | NUR ---
WENT TO DO ROUNDS ON PT. PT STATES HE IS HUNGRY. PT IS ASKING FOR JELLO AND PUDDING. GAVE PT JELLO AND PUDDING, CLEARED PT FOR PO INTAKE. PT TOLERATED WELL. WILL CONTINUE TO MONITOR.
--- NOTE | 2022-01-12 19:30 | NUR ---
ENDORSED PT TO AIRLINE COUNTER AGENT NURSE FOR CONTINUITY OF CARE. PT IS STABLE.
--- NOTE | 2022-01-12 19:32 | NUR ---
RECEIVED REPORT FROM LANCE VARGAS FOR CONTINUITY OF CARE. PT IS STABLE IN BED.A&OX4. DENIES PAIN.ON RM AIR WITH NAD.RR EVEN AND UNLABORED. GI INTACT. PT SKIN INTACT. PT IS AMBULATORY WITH CANE AT BEDSIDE. ALL SAFETY MEASURES IN PLACE. BED LOW AND LOCKED POSITION. VALL LIGHT WITHIN REACH. ENCOURAGED TO CALL FOR ANY NEEDS. WILOL CONTINUE TO MONITOR. .
[2022-01-12 20:00] VITALS: BP 100/61
[2022-01-12] MEDS: AMOXIL/CLAVULANATE 875/125 MG 1 TAB PO SCH (20:16)
--- NOTE | 2022-01-12 21:00 | NUR ---
HS MEDS TAKEN WITH SIPS OF WATER. DENIES PAIN. USES URINAL VOIDED 250CC BROWN URINE. IV FLUSHED AND PATENT. ALL SAFETY MEASURES IN PLACE. CALL LIGHT WITHIN REACH. WILL CONTINUE TO MONITOR.
[2022-01-13] VITALS: BP 90/46
--- NOTE | 2022-01-13 03:00 | NUR ---
FREQ ROUNDS.CHECKED PATIENT STABLE ASLEEP IN BED. RR EVEN AND UNLABORED WITH EQUAL CHEST RISE.. ALL SAFETY MEASURES IN PLACE. CALL LIGHT WITHIN REACH. WILL CONTINUE TO MONITOR.
[2022-01-13 04:00] VITALS: BP 124/74
--- NOTE | 2022-01-13 06:30 | NUR ---
ROUTINE ULTRASOUND INTRA ABD HEMATOMA/CIRRHOSIS ORDERED FOR 01/13/2022. HGB = 7.2. S/P EGD 01/12/2022 3 BANDS PLACED FOR ESOPHAGEAL BLEEDING. PT TOLERATING SOFT DIET ATE 100% DINNER LAC 20G SALINE LOCKED FLUSHED AND PATENT. PT A&OX4. NAD. CALL LIGHT WITHIN REACH. WILL CONTINUE TO MONITOR.
[2022-01-13 06:50] LABS: BASOPHILS % (AUTO) 0.7 % (0.0-2.0); EOSINOPHILS # (AUTO) 0.3 K/uL (0-0.4); EOSINOPHILS % (AUTO) 4.9 % (0.0-4.0); HEMATOCRIT 22.7 % (36-52); HEMOGLOBIN 7.7 g/dL (12.0-18.0); LYMPHOCYTES % (AUTO) 17.4 % (20.5-51.1); MEAN CORPUSCULAR HEMOGLOBIN 34 pg (27-31); MEAN CORPUSCULAR HGB CONC 34 g/dL (33-37); MONOCYTES # (AUTO) 0.9 K/uL (0.8-1.0); MONOCYTES % (AUTO) 14.9 % (1.7-9.3); NEUTROPHILS # (AUTO) 3.6 K/uL (1.8-7.7); NEUTROPHILS % (AUTO) 62.1 % (42.2-75.2); PLATELET COUNT (AUTO) 70 K/uL (140-450); RED BLOOD CELL COUNT(AUTO) 2.25 MIL/uL (4.20-6.10); RED CELL DISTRIBUTION WIDTH 24.3 % (11.6-13.7); WHITE BLOOD COUNT (AUTO) 5.8 K/uL (4.8-10.8)
[2022-01-13 06:56] LABS: ANION GAP 8.2 (8-16); CARBON DIOXIDE 24.3 mmol/L (21-32); POTASSIUM 3.5 mmol/L (3.5-5.1)
--- NOTE | 2022-01-13 07:14 | NUR ---
ENDORSED PATIENT TO ALICIA LUCAS FOR CONTINUITY OF CARE. PT IS STABLE.
--- NOTE | 2022-01-13 07:15 | NUR ---
RECEIVED REPORT FROM BRAND SALES MANAGER NURSE FOR CONTINUITY OF CARE. PT IN BED RESTING AT THIS TIME. RESPIRATIONS ARE EVEN AND UNLABORED ON ROOM AIR. NO SIGNS OF DISTRESS NOTED. PT IS ALERT AND ORIENTED X4, ABLE TO FOLLOW COMMANDS. PT IS ON CARDIAC MONITORING, SINUS RHYTHM. PT IS ON SOFT DIET, ABD IS NONTENDER, NONDISTENDED WITH BOWEL SOUNDS PRESENT. LAST BOWEL MOVEMENT WAS YESTERDAY EVENING. PT HAS IV TO L AC, 20G. SKIN IS WARM, DRY, AND INTACT. CALL LIGHT WITHIN REACH. ALL SAFETY MEASURES IN PLACE. WILL CONTINUE TO MONITOR.
[2022-01-13 08:00] VITALS: BP 99/64
--- NOTE | 2022-01-13 08:00 | NUR ---
Patient's Plan of Care was discussed and reviewed with COSTUME MAKER: NEISHA OSEGUERA
[2022-01-13] MEDS: FUROSEMIDE 20 MG TAB PO SCH (09:00)
[2022-01-13] MEDS: SPIRONOLACTONE 50 MG TAB PO SCH (09:00)
[2022-01-13] MEDS ORDERED: AMOX-999 PO (09:18)
[2022-01-13] MEDS: LACTULOSE 20 GM/30 ML UDC PO SCH (09:18)
[2022-01-13] MEDS ORDERED: POTA10TA70 PO (09:18)
[2022-01-13] MEDS ORDERED: SPIR50TA PO (09:18)
[2022-01-13] MEDS ORDERED: FURO-572 PO (09:18)
[2022-01-13] MEDS: AMOXIL/CLAVULANATE 875/125 MG 1 TAB PO SCH (09:18)
[2022-01-13] MEDS: PANTOPRAZOLE 40 MG TABEC PO SCH (09:18)
[2022-01-13] MEDS: FERROUS SULFATE 300 MG/5 ML UDC GT SCH (09:19)
--- NOTE | 2022-01-13 09:19 | NUR ---
ADMINISTERED SCHEDULED MEDICATIONS. EDUCATED PT ON MEDS ADMINISTERED. PT VERBALIZED UNDERSTANDING. HELD MEDS LASIX AND SPIRONOLACTONE PER PARAMETERS. WILL CONTINUE TO MONITOR.
[2022-01-13 11:21] VITALS: BP 107/66
--- NOTE | 2022-01-13 12:00 | NUR ---
DISCHARGE ORDER IN PLACE. PT MADE AWARE. WILL BEGIN DISCHARGE PAPERWORK.
--- NOTE | 2022-01-13 12:50 | NUR ---
WENT OVER DISCHARGE PAPERWORK WITH PT. ANSWERED ALL QUESTIONS. PT SIGNED ALL PAPERWORK. REMOVED IV. IV CATHETER INTACT. WRIST BAND REMOVED. PT HOMELESS, GIVEN RESOURCES. PT DISCHARGED. ALL BELONGINGS TAKEN UPON DISCHARGE.
--- NOTE | 2022-01-13 14:30 | NUR ---
DC PLANNING . PATIENT IS A 61 YR OLD MALE ADMITTED TO [facility] ON 01/08/22 WITH DX OF LIVER CIRRHOSIS AND SYMPTOMATIC ANEMIA. PATIENT HAS A HX OF ALCOHOL ABUSE CIRRHOSIS SW MET WITH PATIENT AT BEDSIDE TO GATHER COLLATERAL INFORMATION. PATIENT REPORTS EXPERIENCING HOMELESS FOR THE LAST 6 YEARS. PATIENT REPORTS PREVIOUSLY STAYING IN SENIOR CARE HOWEVER, REPORTED BAD EXPERIENCE WITH SHELTERS. PATIENT REPORTED EMERGENCY CONTACT AND MEDICAL DECISION MAKER BELKYS PICKARD [phone]. PATIENT DENIES AD IN PLACE AND ACCEPTED PACKET OFFERED BY SERA. PATIENT REPORTS WORKING WITH HIS SISTER TO GET OUT TO [place] TO LIVE WITH HER AND "GET MY LIFE RIGHT". PATIENT ALSO REPORTS WORKING WITH [facility] AND WORKING ON COMPLIANCE ASSOCIATE HOUSING AND APPLICATION FOR SSDI BENEFITS. PATIENT CURRENTLY DOES NOT HAVE A PCP AND IS WORKING WITH BENEFIT ADVISOR IN [employer]QU[employer]ING [employer] BEN[employer]. PATIENT IS UNABLE TO RECALL LAST VISIT WITH A PROVIDER. PATIENT REPORTS AMBULATORY WITH DME ASSISTANCE; ISMAEL.SW INQUIRED ON SUBSTANCE USE HX, PATIENT REPORTS "DRINKING ALL HIS LIFE" WITH USE THAT BEGAN AT THE AGE OF 14. PATIENT REPORTS BEING 3 WEEKS SOBER AND VOWS TO QUIT HIS HEALTH IS QUICKLY DETERIORATING.PATIENT REPORTS HX OF SUBSTANCE USE WITH DRUG OF CHOICE PRIMARILY BEING METH. PATIENT REPORTS HE HAS NOT USED METH IN THE LAST TWO MONTHS. SERA PROVIDED PATIENT WITH SUBSTANCE USE, EMERGENCY ASSISTANCE, HOMELESS, AND LOW COST PROVIDER CLINICS RESOURCES. SW INQUIRED ON ADDITIONAL RESOURCES NEEDED, PATIENT DECLINED AT THIS TIME. PATIENT WAS ENCOURAGED TO CALL FOR SW IF NEEDED AND ADDITIONAL RESOURCES WERE NEEDED. PATIENT REPORTED THAT HE WOULD IF NEEDED.
== END 2022-01-13 13:09 | disposition home or self-care (01) | DRG 280 ==
LOC: MED 17:42 → MTU 20:03 → MIC 20:18 → MTU 01-09 20:10
PROVIDERS: ADMIT Family Medicine; ATTEND Family Medicine
PROC: 30233N1 Transfusion of Nonautologous Red Blood Cells into Peripheral Vein, Percutaneous Approach (ICD-10-PCS; 2022-01-08)
PROC: 06L38CZ Occlusion of Esophageal Vein with Extraluminal Device, Via Natural or Artificial Opening Endoscopic (ICD-10-PCS; principal; 2022-01-12 13:00)
DX: K70.31 Alcoholic cirrhosis of liver with ascites (principal); G93.41 Metabolic encephalopathy; I85.11 Secondary esophageal varices with bleeding; E43 Unspecified severe protein-calorie malnutrition; K72.90 Hepatic failure, unspecified without coma; D69.6 Thrombocytopenia, unspecified; D68.9 Coagulation defect, unspecified; E87.1 Hypo-osmolality and hyponatremia; D62 Acute posthemorrhagic anemia; L03.311 Cellulitis of abdominal wall; E87.6 Hypokalemia; F10.10 Alcohol abuse, uncomplicated; Y90.9 Presence of alcohol in blood, level not specified; R74.01 Elevation of levels of liver transaminase levels; N39.0 Urinary tract infection, site not specified; E78.5 Hyperlipidemia, unspecified; Z20.822 Contact with and (suspected) exposure to COVID-19; I50.9 Heart failure, unspecified; E86.0 Dehydration; F17.210 Nicotine dependence, cigarettes, uncomplicated; Z59.00 Homelessness unspecified
CPT/HCPCS: 36415; 36430; 71045; 76700; 80048; 80053; 80305; 81001; 82105; 82150; 83036; 83690; 83735; 83880; 84100; 84436; 84439; 84443; 84479; 84484; 85018; 85025; 85384; 85610; 85730; 86886; 86900; 86901; 86920; 87040; 87081; 87086; 96374; 99285; C9113; J1200; J2250; J2354; J2543; J3010; J3430; J7030; J7060; P9016; Q0092

== ENCOUNTER 2022-01-17 06:47 | Inpatient (IN) | payer MEDICAID ==
[~2022-01-17] VITALS: Ht 180.3 cm; Wt 91.6 kg
[~2022-01-17 06:47] MED LIST changes: +AMOX-999 PO; +POTA10TA70 PO
[2022-01-17 06:48] VITALS: BP 109/69
--- NOTE | 2022-01-17 06:55 | NUR ---
PT TAKEN TO BED 07 BIBA BLS
--- NOTE | 2022-01-17 07:07 | NUR ---
20G IV CATH PLACED L AC. LABS COLLECTED AT BEDSIDE.
[2022-01-17] MEDS ORDERED: KETOROLAC 30 MG/ML VIAL IVP ONE (07:10)
[2022-01-17] MEDS ORDERED: FUROSEMIDE 40 MG/4 ML VIAL IVP ONE (07:10)
--- NOTE | 2022-01-17 07:15 | NUR ---
RECEIVED REPORT FROM ALICIA BARRIENTOS FOR TRANSFER OF CARE.
--- NOTE | 2022-01-17 07:32 | NUR ---
LAB AT BEDSIDE.
--- NOTE | 2022-01-17 07:38 | NUR ---
X RAY AT BEDSIDE.
--- NOTE | 2022-01-17 07:42 | NUR ---
joy johnson collected and handed to yard labor supervisor bedside
[2022-01-17 07:47] LABS: HEMATOCRIT 27.1 % (36-52); MEAN CORPUSCULAR HEMOGLOBIN 34 pg (27-31); MEAN CORPUSCULAR HGB CONC 33 g/dL (33-37); PLATELET COUNT (AUTO) 84 K/uL (140-450); RED BLOOD CELL COUNT(AUTO) 2.66 MIL/uL (4.20-6.10); RED CELL DISTRIBUTION WIDTH 21.7 % (11.6-13.7); WHITE BLOOD COUNT (AUTO) 16.7 K/uL (4.8-10.8)
[2022-01-17 07:55] LABS: ALBUMIN 1.7 g/dL (3.4-5.0); ANION GAP 18.7 (8-16); CARBON DIOXIDE 15.8 mmol/L (21-32); CREATININE 1.6 mg/dL (0.6-1.3); POTASSIUM 3.5 mmol/L (3.5-5.1); TOTAL BILIRUBIN 9.9 mg/dL (0.0-1.0)
[2022-01-17 08:06] LABS: LYMPHOCYTES % (MANUAL) 0 % (20-46); MONOCYTES % (MANUAL) 2 % (5-12)
[2022-01-17] MEDS ORDERED: MORPHINE SULFATE 4 MG/ML SYR IVP ONE (09:05)
[2022-01-17] MEDS ORDERED: cefTRIAXone 1,000 MG VIAL ONE ×2 (09:48→11:40)
--- NOTE | 2022-01-17 10:10 | NUR ---
Patients BP is 79/46. Elevated patients legs and informed Dr. Coelho of low BP. Patient has no SOB, Chest pain or discomfort.
[2022-01-17] MEDS ORDERED: NACL 0.9% 1,000 ML IV ONE (10:20)
--- NOTE | 2022-01-17 10:23 | NUR ---
Received new orders from Dr. Coelho for Bolus IV due to low BP. Will carry out orders.
[2022-01-17] MEDS ORDERED: AZITHROMYCIN 500 MG in DEXTROSE 5% 250 ML IV SCH (11:05)
[2022-01-17] MEDS ORDERED: ONDANSETRON 4 MG/2 ML VIAL IVP PRN (11:05)
[2022-01-17] MEDS ORDERED: ACETAMINOPHEN 325 MG TAB PO PRN (11:05)
--- NOTE | 2022-01-17 11:35 | NUR ---
Patients BP is 102/62.
[2022-01-17] MEDS ORDERED: AZITHROMYCIN 500 MG INJ VIAL IV ONE (11:40)
--- NOTE | 2022-01-17 11:58 | NUR ---
PATIENT HAS BEEN SCREENED AND CATEGORIZED MODERATE NUTRITION RISK. PATIENT WILL BE SEEN WITHIN 3-5 DAYS OF ADMISSION. 01/19/22-01/21/22 PETRA PENN MS, RDN
--- NOTE | 2022-01-17 12:21 | NUR ---
Dr. Vicente at bedside evaluating patient.
[2022-01-17] MEDS ORDERED: MIDODRINE 5 MG TAB PO SCH (12:40)
--- NOTE | 2022-01-17 12:41 | NUR ---
Patient's BP is 93/60. Notified Dr. Vicente of low BP. Recieved new orders for Midorine 10mg TID. And a one time dose now. Orders carried out.
--- NOTE | 2022-01-17 13:04 | NUR ---
LEARNING DEVELOPER AT BEDSIDE.
[2022-01-17] MEDS: MIDODRINE 5 MG TAB PO SCH ×2 (13:26→19:05)
--- NOTE | 2022-01-17 16:35 | NUR ---
Patient's blood pressure is 79/52. Patient has no signs of distress or chest pain. Will notify Dr. Vicente.
[2022-01-17] MEDS ORDERED: NOREPINEPHRINE 8 MG in DEXTROSE 5% 250 ML IV PRN (16:40)
--- NOTE | 2022-01-17 16:52 | NUR ---
Recieved new orders from Dr. Vicente to start Levophed if MAP drops below 60 and for lactic orders. Will carry out.
[2022-01-17 16:55] LABS: HEMATOCRIT 25.9 % (36-52); HEMOGLOBIN 8.6 g/dL (12.0-18.0)
--- NOTE | 2022-01-17 17:00 | NUR ---
RECEIVED REPORT FROM ALICIA NOEL FOR TRANSFER OF CARE AT THIS TIME
--- NOTE | 2022-01-17 17:25 | NUR ---
PT RETURNED TO BED [address] [facility] [facility]
[2022-01-17] MEDS ORDERED: VANCOMYCIN PER PHARMACY MC PRN (18:05)
--- NOTE | 2022-01-17 18:35 | NUR ---
PT PROVIDED WITH DINNER TRAY BEDSIDE, CURRENTLY REFUSING TO EAT BUT REQUESTED TO LEAVE TRAY BEDSIDE
[2022-01-17 18:57] LABS: PROTHROMBIN TIME 23.3 secs (10.8-13.4)
[2022-01-17] MEDS ORDERED: MIDODRINE 5 MG TAB ONE (19:07)
--- NOTE | 2022-01-17 19:11 | NUR ---
PT CURRENT BP 94/59 AT THIS TIME. PT PROVIDED WITH BP MEDICATION. WILL CONTINUE TO MONITOR
--- NOTE | 2022-01-17 19:30 | NUR ---
Pt report given to PORTER DAVIS. Transfer of care at this time.
--- NOTE | 2022-01-17 21:07 | NUR ---
consent signed for central line and paracentesis
[2022-01-17] MEDS ORDERED: VANCOMYCIN 1,000 MG VIAL ONE (21:18)
[2022-01-17] MEDS ORDERED: NOREPINEPHRINE 4 MG/4 ML VIAL IV ONE (21:21)
--- NOTE | 2022-01-17 21:47 | NUR ---
Dr. Yip examining patient.
[2022-01-17] MEDS: PANTOPRAZOLE 40 MG INJ VIAL IVP SCH (21:55)
--- NOTE | 2022-01-17 21:55 | NUR ---
DR PAPPAS PERFORMING CENTRAL LINE PROCEDURE
--- NOTE | 2022-01-17 22:35 | NUR ---
X-Ray at bedside.
--- NOTE | 2022-01-17 22:45 | NUR ---
RT AT BEDSIDE
--- NOTE | 2022-01-18 00:11 | NUR ---
PT TAKEN TO CT VIA [facility]
--- NOTE | 2022-01-18 00:24 | NUR ---
PT RETURN FROM CT
--- NOTE | 2022-01-18 00:59 | NUR ---
XRAY AND CT RESULTS FOR CENTRAL LINE PLACEMENT CONFIRMED AND APPROVED TO NOW RUN MEDS/FLUIDS.
[2022-01-18] MEDS: VANCOMYCIN 1GM/DEXT 5% PREMIX 200 ML IV SCH ×2 (01:24→09:00)
[2022-01-18] MEDS ORDERED: PIPERACILLIN/TAZOBACTAM 3.375 GM VIAL IV ONE ×2 (02:13→06:20)
[2022-01-18] MEDS: PIPERACILLIN/TAZOBACTAM 3.375 GM in DEXTROSE 5% 50 ML IV SCH ×5 (04:06→23:50)
[2022-01-18 06:36] LABS: FOLIC ACID 7.4 ng/mL (>3.0)
[2022-01-18] MEDS: MIDODRINE 5 MG TAB PO SCH ×3 (07:07→20:32)
--- NOTE | 2022-01-18 07:21 | NUR ---
GAVE TRANSFER OF CARE REPORT TO PORTER KURTZ
--- NOTE | 2022-01-18 07:30 | NUR ---
RECEIVED PT IN [facility] ALERT ORIENTED WITH PERIODS OF CONFUSION. RIGHT TRIPLE LUMEN IJ NOTED INFUSING LEVOPHED PER PROTOCOL. PT TOLERATING WELL. NSR ON MONITOR. BREATHING UNLABORED. ADMITTED TO ICU PENDING BED
[2022-01-18] MEDS ORDERED: NOREPINEPHRINE 4 MG/4 ML VIAL IV ONE ×2 (07:41→23:47)
[2022-01-18 07:47] LABS: BASOPHILS % (AUTO) 0.1 % (0.0-2.0); EOSINOPHILS # (AUTO) 0.1 K/uL (0-0.4); EOSINOPHILS % (AUTO) 0.5 % (0.0-4.0); HEMATOCRIT 23.5 % (36-52); HEMOGLOBIN 7.8 g/dL (12.0-18.0); LYMPHOCYTES # (AUTO) 1.1 K/uL (2.0-11.5); LYMPHOCYTES % (AUTO) 6.2 % (20.5-51.1); MEAN CORPUSCULAR HEMOGLOBIN 34 pg (27-31); MEAN CORPUSCULAR HGB CONC 33 g/dL (33-37); MEAN CORPUSCULAR VOLUME 101.3 fL (80-94); MONOCYTES # (AUTO) 1.2 K/uL (0.8-1.0); MONOCYTES % (AUTO) 6.7 % (1.7-9.3); NEUTROPHILS # (AUTO) 15.3 K/uL (1.8-7.7); NEUTROPHILS % (AUTO) 86.5 % (42.2-75.2); PLATELET COUNT (AUTO) 93 K/uL (140-450); RED BLOOD CELL COUNT(AUTO) 2.32 MIL/uL (4.20-6.10); RED CELL DISTRIBUTION WIDTH 20.6 % (11.6-13.7); WHITE BLOOD COUNT (AUTO) 17.7 K/uL (4.8-10.8)
[2022-01-18 07:59] LABS: ANION GAP 11.7 (8-16); CARBON DIOXIDE 21.3 mmol/L (21-32); CREATININE 1.9 mg/dL (0.6-1.3)
[2022-01-18 08:09] LABS: MAGNESIUM 2.2 mg/dL (1.8-2.4); PHOSPHORUS 5.1 mg/dL (2.5-4.9)
[2022-01-18] MEDS: SPIRONOLACTONE 50 MG TAB PO SCH (09:00)
[2022-01-18] MEDS: PANTOPRAZOLE 40 MG INJ VIAL IVP SCH ×2 (09:00→20:32)
--- NOTE | 2022-01-18 10:30 | NUR ---
PT ASLEEP NO S/S PAIN OR DISCOMFORT. CONTINUE TO MONITOR.
[2022-01-18] MEDS ORDERED: VANCOMYCIN 1,000 MG VIAL ONE (11:50)
[2022-01-18] MEDS ORDERED: VANCOMYCIN 500 MG VIAL ONE (11:50)
--- NOTE | 2022-01-18 12:30 | NUR ---
PT RESTING IN GURNEY , REMAINS ON LEVO. NO CHANGES NOTED. SAFETY MAINTAINED
[2022-01-18] MEDS: VANCOMYCIN 500 MG in DEXTROSE 5% 100 ML IV SCH (13:41)
--- NOTE | 2022-01-18 16:00 | NUR ---
CENTRAL LINE REMOVED BY PT. PRESSURE APPLIED. NO ACTIVE BLEEDING NOTED. DR PAPPAS MADE AWARE. PREPARING FOR CENTRAL LINE PLACEMENT
--- NOTE | 2022-01-18 17:34 | NUR ---
RIGHT FEMORAL LINE PLACED BY DR PAPPAS.
[2022-01-19] VITALS (16 sets, daily range): BP systolic 89–128; BP diastolic 47–98
[2022-01-19] MEDS ORDERED: VANCOMYCIN 500 MG VIAL ONE (00:46)
[2022-01-19] MEDS: VANCOMYCIN 500 MG in DEXTROSE 5% 100 ML IV SCH (00:52)
[2022-01-19] MEDS: PIPERACILLIN/TAZOBACTAM 3.375 GM in DEXTROSE 5% 50 ML IV SCH ×3 (06:32→18:58)
[2022-01-19] MEDS: MIDODRINE 5 MG TAB PO SCH ×3 (06:36→18:58)
--- NOTE | 2022-01-19 07:31 | NUR ---
TRANSFER OF CARE REPORT GIVEN TO PORTER MAYFIELD
--- NOTE | 2022-01-19 07:40 | NUR ---
Patient will be admitted to care of . Admited to ICU. Will go to room 7. Belongings list completed. Report to PORTER BUTLER.
[2022-01-19] MEDS: FUROSEMIDE 20 MG/2 ML VIAL IVP SCH (10:00)
[2022-01-19] MEDS: SPIRONOLACTONE 50 MG TAB PO SCH (10:00)
[2022-01-19] MEDS: PANTOPRAZOLE 40 MG INJ VIAL IVP SCH ×2 (10:00→20:19)
--- NOTE | 2022-01-19 11:19 | NUR ---
FNS referral/consult received on 01/19/[address] without nutrition-related reason. Consult reason does not meet high risk criteria per hospital policy. Patient will be seen and assessed according to the nutrition care policy. Roxie Watson MS, RDN
--- NOTE | 2022-01-19 12:00 | NUR ---
DR. BOOTHE HERE, NO ORDERS RECEIVED. DR. VENTURA HERE AND ORDERS RECEIVED.
[2022-01-19] MEDS: NACL 0.9% 500 ML IV SCH (12:16)
[2022-01-19 12:21] LABS: BASOPHILS % (AUTO) 0.1 % (0.0-2.0); EOSINOPHILS % (AUTO) 0.4 % (0.0-4.0); HEMATOCRIT 25.3 % (36-52); HEMOGLOBIN 8.3 g/dL (12.0-18.0); LYMPHOCYTES # (AUTO) 0.8 K/uL (2.0-11.5); LYMPHOCYTES % (AUTO) 6.8 % (20.5-51.1); MEAN CORPUSCULAR HEMOGLOBIN 33 pg (27-31); MEAN CORPUSCULAR HGB CONC 33 g/dL (33-37); MONOCYTES # (AUTO) 1.3 K/uL (0.8-1.0); MONOCYTES % (AUTO) 11.3 % (1.7-9.3); NEUTROPHILS # (AUTO) 9.1 K/uL (1.8-7.7); NEUTROPHILS % (AUTO) 81.4 % (42.2-75.2); PLATELET COUNT (AUTO) 77 K/uL (140-450); RED BLOOD CELL COUNT(AUTO) 2.48 MIL/uL (4.20-6.10); RED CELL DISTRIBUTION WIDTH 20.4 % (11.6-13.7); WHITE BLOOD COUNT (AUTO) 11.2 K/uL (4.8-10.8)
[2022-01-19 12:40] LABS: ANION GAP 13.7 (8-16); CARBON DIOXIDE 20.3 mmol/L (21-32); CREATININE 1.5 mg/dL (0.6-1.3)
[2022-01-19 12:44] LABS: MAGNESIUM 2.2 mg/dL (1.8-2.4); PHOSPHORUS 4.1 mg/dL (2.5-4.9)
[2022-01-19] MEDS ORDERED: ALBUMIN HUMAN 25% 100 ML IV SCH (13:15)
[2022-01-19] MEDS ORDERED: NACL 0.9% 250 ML IV SCH ×2 (13:15→17:15)
[2022-01-19] MEDS ORDERED: VANCOMYCIN HCL 1.25 GM in DEXTROSE 5% 250 ML IV SCH (13:30)
--- NOTE | 2022-01-19 13:45 | NUR ---
TYLENOL 650MG GIVEN FOR TEMP 101.3. PATIENT REFUSES TO REMOVE BLANKETS. URINE SPECIMENS SENT TO LAB. TITRATING LEVOPHED OFF. DECREASED TO 3MCG/MIN. ALBUMIN 25% INFUSING.
--- NOTE | 2022-01-19 16:00 | NUR ---
LEVOPHED OFF. BP STABLE WITH SBP 110 AND MAP 76. ATTEMPTED TO WEAN O2. SAO2 DROPPED TO 80'S. REPLACED O2 AT 3L/NC.
[2022-01-19 16:23] LABS: BILIRUBIN,URINE 1+ (NEGATIVE); BLOOD, URINE 2+ (NEGATIVE); LEUKOCYTE ESTERASE ,URINE 1+ (NEGATIVE); NITRITE, URINE NEGATIVE (NEGATIVE); UGLUCOSE TRACE (NEGATIVE)
[2022-01-19 16:25] LABS: APPEARANCE,URINE HAZY (CLEAR); COLOR,URINE AMBER (YELLOW)
--- NOTE | 2022-01-19 18:00 | NUR ---
REPORT GIVEN TO PORTER MAYES. PATIENT STABLE.
--- NOTE | 2022-01-19 19:30 | NUR ---
RECEIVED REPORT FROM AM SHIFT NURSE FOR CONTINUITY OF CARE. PT AWAKE, ALERT AND ORIENTED. RESTING ON BED, PT ON O2 3L VIA NC, BREATHING EQUAL AND UNLABORED WITH NO S/SX OF RESPIRATORY DISTRESS NOTED. R FEMORAL PICC ON KVO, DENIES PAIN. ABDOMINAL DISTENTION NOTED. ALL PRECAUTIONS IN PLACE. WILL CONTINUE TO MONITOR.
--- NOTE | 2022-01-19 21:00 | NUR ---
SCHEDULED MEDICATION GIVEN. PT TOLERATED WELL. NO DISTRESS NOTED. WILL CONTINUE TO MONITOR.
[2022-01-19 21:31] LABS: TOTAL PROTEIN URINE 22.8 MG/DL
--- NOTE | 2022-01-19 23:44 | NUR ---
PT ASLEEP.BP HAS BEEN STABLE SINCE START OF THE SHIFT. NO COMPLAINS OF PAIN, NO S/SX OF RESPIRATORY DISTRESS NOTED. ALL PRECAUTIONS IN PLACE. WILL CONTINUE TO MONITOR.
[2022-01-20] VITALS: BP 111/67
--- NOTE | 2022-01-20 01:30 | NUR ---
PT TRANSFERRED FROM ICU TO TELE BED ROOM 112A. PT IS STABLE. BP 133/70, HR 98, RR 22, T 98.8,O2 SAT AT 94%. ON 3L O2 VIA NC.PT CLEANED AND CHANGED, PT TOLERATED WELL. DENIES PAIN,CALL LIGHT WITHIN REACH.WILL CONTINUE TO MONITOR.
--- NOTE | 2022-01-20 01:38 | NUR ---
0128 PATIENT TRANSFERRED FROM ICU TO ROOM 112A. PT ON 3LNC SATS 95%
--- NOTE | 2022-01-20 03:27 | NUR ---
PT AWAKE ON BED. O2 SAT AT 95% ON O2 3L VIA NC.NO S/SX OF DISTRESS NOTED. ALL PRECAUTIONS IN PLACE. WILL CONTINUE TO MONITOR.
[2022-01-20 04:00] VITALS: BP 121/72
[2022-01-20 05:34] LABS: PROTHROMBIN TIME 15.7 secs (10.8-13.4)
[2022-01-20 05:35] LABS: CARBON DIOXIDE 21.6 mmol/L (21-32); CREATININE 1.4 mg/dL (0.6-1.3); POTASSIUM 3.6 mmol/L (3.5-5.1)
--- NOTE | 2022-01-20 06:00 | NUR ---
SCHEDULED MEDICATIONS GIVEN. PT TOLERATED WELL. NO DISTRESS NOTED.
[2022-01-20] MEDS: PIPERACILLIN/TAZOBACTAM 3.375 GM in DEXTROSE 5% 50 ML IV SCH ×5 (06:17→18:41)
[2022-01-20 06:28] LABS: BASOPHILS % (AUTO) 0.2 % (0.0-2.0); EOSINOPHILS % (AUTO) 0.4 % (0.0-4.0); HEMATOCRIT 22.1 % (36-52); HEMOGLOBIN 7.5 g/dL (12.0-18.0); LYMPHOCYTES # (AUTO) 0.6 K/uL (2.0-11.5); LYMPHOCYTES % (AUTO) 8.4 % (20.5-51.1); MEAN CORPUSCULAR HEMOGLOBIN 34 pg (27-31); MEAN CORPUSCULAR HGB CONC 34 g/dL (33-37); MEAN CORPUSCULAR VOLUME 99.2 fL (80-94); MONOCYTES # (AUTO) 1.1 K/uL (0.8-1.0); NEUTROPHILS # (AUTO) 5.1 K/uL (1.8-7.7); PLATELET COUNT (AUTO) 61 K/uL (140-450); RED BLOOD CELL COUNT(AUTO) 2.22 MIL/uL (4.20-6.10); RED CELL DISTRIBUTION WIDTH 19.8 % (11.6-13.7); WHITE BLOOD COUNT (AUTO) 6.8 K/uL (4.8-10.8)
[2022-01-20] MEDS: MIDODRINE 5 MG TAB PO SCH ×3 (06:38→19:00)
--- NOTE | 2022-01-20 07:23 | NUR ---
PT IS STABLE. ENDORSED TO AM SHIFT NURSE FOR CONTINUITY OF CARE.
[2022-01-20 08:00] VITALS: BP 112/62
--- NOTE | 2022-01-20 08:01 | NUR ---
RECEIVE ENDORSEMENT FROM PM SHIFT NURSE W/ PATIENT REST IN BED, PICC JESSE NS INFUSING AT 10ML/HR. TPN INFUSING AT 80ML/HR. WILL CONTINUE TO MONITOR Addendum: 01/20/22 at 0817 by Asia Morgan RN RECEIVE ENDORSEMENT FROM PM SHIFT NURSE W/ PATIENT REST IN BED, PICC AT R. FORMAL TRIPLE LUMEN INFUSING NS 10ML/HR. WILL CONTINUE TO MONITOR
--- NOTE | 2022-01-20 08:05 | NUR ---
PT ON 3L NC. EQUAL CHEST RISE, NO DISTRESS NOTED.
[2022-01-20] MEDS: PANTOPRAZOLE 40 MG INJ VIAL IVP SCH ×2 (09:55→20:17)
[2022-01-20] MEDS: SPIRONOLACTONE 50 MG TAB PO SCH (09:56)
[2022-01-20] MEDS: FUROSEMIDE 20 MG/2 ML VIAL IVP SCH (09:56)
[2022-01-20] MEDS: VANCOMYCIN 1,000 MG in DEXTROSE 5% 250 ML IV SCH ×2 (09:58→21:38)
[2022-01-20] MEDS: NACL 0.9% 500 ML IV SCH (12:13)
--- NOTE | 2022-01-20 13:40 | NUR ---
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 CXR SHOWS OPACITY AND BIBASILAR ATELECTASIS. GIVEN ROCEPHIN IV IN ED, BUN AND CR ELEVATED AT 15 AND 1.6, BNP 743, WBC 16.7. PATIENT STARTED ON VANCO, LASIX AND ZOSYN, CONSULTS ORDERED WITH ID, NEPHROLOGY, PULMONOLOGY, CARDIOLOGY AND GI. CM SPOKE WITH THE PATIENT AT BEDSIDE, HE HAS BEEN HOMELESS FOR THE LAST SIX YEARS AND SLEEPS AND LIVES ON THE STREET, NO PARTICULAR PLACE. CM ASKED IF THE PATIENT GOES TO [facility], HE REPLIED NO, THAT THEY DON'T WORK. HE HAS A H/O OF ETOH ABUSE, STOPPED DRINKING 4 WEEKS AGO. HE HAS NO INCOME SOURCE ASIDE FROM RECYCLING AND OCCASIONAL PANHANDLING. HE HAS CHILDREN IN [place] BUT STATES THERE'S NO PLACE FOR HIM TO STAY IF HE WENT THERE. NO PMD, PATIENT HAS BEEN DENIED FOR FOOD STAMPS PER HIS STATEMENT. PATIENT REFERRED TO THE FOR RESOURCES, CM WILL FOLLOW. Addendum: 01/21/22 at 1102 by Marleny Fournier CM DC PLANNING: ORDER RECEIVED FOR HOSPICE EVALUATION, CLINICAL PACKET FAXED TO [facility]. CELINE WILL FOLLOW. Addendum: 01/22/22 at 1149 by Marleny Fournier CM DC PLANNING: [facility] CONTINUES TO WORK ON SNF PLACEMENT UNDER HOSPICE. CELINE WILL FOLLOW. Addendum: 01/26/22 at 1233 by Marleny Fournier CM DC PLANNING: CELINE SPOKE WITH THE PATIENT AT BEDSIDE TO LET HIM KNOW THAT HE HAS NOT BEEN ACCEPTED TO ANY FACILITIES APPROACHED BY HOSPICE. ENDORSED THAT THERE ARE NO FURTHER INPATIENT RESOURCES, THE PATIENT STATES THAT HE WILL CALL HIS SISTER FOR POTENTIAL HELP AND HOUSING. THE PATIENT WAS GIVEN HOMELESS RESOURCES BY THE , DOES NOT WANT TO GO TO A NURSING HOME. CELINE WILL FOLLOW.
[2022-01-20] MEDS ORDERED: LIDOCAINE MPF 1% 5 ML ONE (13:49)
--- NOTE | 2022-01-20 15:00 | NUR ---
US GUIDED PARACENTESIS DONE AND REMOVED 4.5 LITER FLUID. PATIENT TOLERATE PROCEDURE. WILL CONTINUE TO MONITOR
[2022-01-20 16:00] VITALS: BP 111/63
[2022-01-20] MEDS: FERROUS SULFATE 325 MG TABEC PO SCH (17:11)
--- NOTE | 2022-01-20 19:22 | NUR ---
ENDORSE PT TO PM SHIFT NURSE W/ PATIENT REST IN BED, PICC ACCESS AT R. FORMAL TRIPLE LUMEN INFUSING NS 10ML/HR
--- NOTE | 2022-01-20 19:30 | NUR ---
RECEIVED REPORT FROM AM SHIFT NURSE FOR CONTINUITY OF CARE. PT AWAKE, ALERT AND ORIENTED. RESTING ON BED, PT ON O2 3L VIA NC, BREATHING EQUAL AND UNLABORED WITH NO S/SX OF RESPIRATORY DISTRESS NOTED. R FEMORAL PICC ON KVO, DENIES PAIN.PARACENTESIS SITE DRESSING DRY AND INTACT. ABDOMINAL DISTENTION NOTED. ALL PRECAUTIONS IN PLACE. WILL CONTINUE TO MONITOR.
--- NOTE | 2022-01-20 21:00 | NUR ---
SCHEDULED MEDICATIONS GIVEN. PT TOLERATED WELL. NO DISTRESS NOTED.
[2022-01-20] MEDS ORDERED: cefTRIAXone 1,000 MG VIAL ONE (22:00)
--- NOTE | 2022-01-20 22:00 | NUR ---
SCHEDULED ANTIBIOTICS GIVEN. PT TOLERATED WELL. NO DISTRESS NOTED.
--- NOTE | 2022-01-21 02:41 | NUR ---
PT ASLEEP ON BED. O2 SAT AT 95% ON O2 5L VIA NC.NO S/SX OF DISTRESS NOTED. ALL PRECAUTIONS IN PLACE. WILL CONTINUE TO MONITOR.
[2022-01-21] MEDS: MIDODRINE 5 MG TAB PO SCH ×3 (06:34→18:42)
[2022-01-21 06:47] LABS: BASOPHILS % (AUTO) 0.2 % (0.0-2.0); EOSINOPHILS # (AUTO) 0.1 K/uL (0-0.4); LYMPHOCYTES # (AUTO) 0.8 K/uL (2.0-11.5); LYMPHOCYTES % (AUTO) 14.5 % (20.5-51.1); MEAN CORPUSCULAR HEMOGLOBIN 34 pg (27-31); MEAN CORPUSCULAR HGB CONC 34 g/dL (33-37); MEAN CORPUSCULAR VOLUME 98.8 fL (80-94); MONOCYTES % (AUTO) 19.1 % (1.7-9.3); NEUTROPHILS # (AUTO) 3.6 K/uL (1.8-7.7); NEUTROPHILS % (AUTO) 65.2 % (42.2-75.2); PLATELET COUNT (AUTO) 49 K/uL (140-450); RED BLOOD CELL COUNT(AUTO) 2.02 MIL/uL (4.20-6.10); RED CELL DISTRIBUTION WIDTH 19.9 % (11.6-13.7); WHITE BLOOD COUNT (AUTO) 5.4 K/uL (4.8-10.8)
[2022-01-21 06:50] LABS: ANION GAP 10.2 (8-16); CARBON DIOXIDE 21.2 mmol/L (21-32); CREATININE 1.2 mg/dL (0.6-1.3); POTASSIUM 3.4 mmol/L (3.5-5.1)
--- NOTE | 2022-01-21 07:15 | NUR ---
RECEIVED REPORT FROM AUTOMOBILE MECHANIC HELPER NURSE. PT IS AWAKE, AOX2. PT NOT IN DISTRESS AT THIS TIME. HAS PICC LINE ON RIGHT FEMORAL WITH 3 LUMEN. ON 5L O2 NC. URINAL AT BEDSIDE. CALL WILSON WITHIN PT'S REACH. ALL SAFETY MEASURES DONE. DISCUSSED PLAN OF CARE. WILL CONTINUE TO MONITOR.
--- NOTE | 2022-01-21 07:38 | NUR ---
PT IS STABLE. ENDORSED TO AM SHIFT NURSE FOR CONTINUITY OF CARE.
[2022-01-21 08:00] VITALS: BP 106/66
[2022-01-21] MEDS: FERROUS SULFATE 325 MG TABEC PO SCH ×2 (08:00→17:00)
[2022-01-21 08:09] LABS: HEMOGLOBIN 6.8 g/dL (12.0-18.0)
[2022-01-21 08:10] LABS: HEMATOCRIT 19.9 % (36-52)
--- NOTE | 2022-01-21 08:28 | NUR ---
RECEIVED CALL FROM [facility], PT HGB IS LOW, AT 6.8. INFORMED DR PEREZ.
--- NOTE | 2022-01-21 09:36 | NUR ---
MELISSA FROM [facility] CALLED, IGNACIO CHRISTIANSEN IS AT 15.8. REPORTED IT TO
[2022-01-21] MEDS: SPIRONOLACTONE 50 MG TAB PO SCH (09:52)
[2022-01-21] MEDS: PANTOPRAZOLE 40 MG INJ VIAL IVP SCH ×2 (09:52→21:01)
[2022-01-21] MEDS: FUROSEMIDE 20 MG/2 ML VIAL IVP SCH (09:52)
--- NOTE | 2022-01-21 09:52 | NUR ---
CALLED [facility], ASKED IF I CAN STILL GIVE VANCOMYCIN IV, SINCE VANCO TROUGH IS 15.8. [facility] SAID IT'S OKAY TO GIVE VANCO IV. WILL GIVE VANCOMYCIN IV TO PT.
[2022-01-21] MEDS: VANCOMYCIN 1,000 MG in DEXTROSE 5% 250 ML IV SCH ×2 (10:08→22:19)
--- NOTE | 2022-01-21 11:00 | NUR ---
ASSISTED PT TO USE THE URINAL AT BEDSIDE.
[2022-01-21] MEDS: NACL 0.9% 500 ML IV SCH (12:00)
--- NOTE | 2022-01-21 14:00 | NUR ---
PT IS AWAKE, DENIES PAIN AT THIS TIME. WILL CONTINUE TO MONITOR.
--- NOTE | 2022-01-21 14:36 | NUR ---
01/21/22 RD INITIAL ASSESSMENT COMPLETED PLEASE REFER TO NUTRITION ASSESSMENT UNDER CARE ACTIVITY FOR ESTIMATED NUTRITIONAL NEEDS. 1. CONTINUE REGULAR DIET TOLERATED 2. RECOMMEND ENSURE BID PER RD PROTOCOL 3. MONITOR PO INTAKE 4. RD TO FOLLOW-UP 3-5 DAYS, MODERATE RISK SANJAY KIMBLE, RD
[2022-01-21 16:00] VITALS: BP 122/57
--- NOTE | 2022-01-21 18:00 | NUR ---
SEEN PT LYING ON HIS BED, SLEEPING. SEEN CHEST RISE AND FALL. PT NOT IN DISTRESS AT THIS TIME.
--- NOTE | 2022-01-21 19:10 | NUR ---
GAVE REPORT TO DEALER COMPLIANCE REPRESENTATIVE NURSE. DISCUSSED PLAN OF CARE. PT V/S STABLE.
--- NOTE | 2022-01-21 19:45 | NUR ---
GET THE REPORT FROM MORNING NURSE LE , PATIENT PATIENT IS ALERT ORIENTED X2-3 , CALL LIGHT IS WITHIN THE REACH, WILL CONTINUE TO MONITOR PATIENT.
[2022-01-21 20:00] VITALS: BP_SYST 104; BP_SYST 135; BP_DIAS 50; BP_DIAS 60
--- NOTE | 2022-01-21 20:00 | NUR ---
PATIENT IS LYING ON BED, VITAL SIGN IS WITHIN THE NORMAL RANGE, ALL SCHEDULE MEDICATION IS GIVEN PER DOCTOR ORDER, CALL LIGHT IS WITHIN REACH, WILL CONTINUE TO MONITOR PATIENT.
--- NOTE | 2022-01-22 00:15 | NUR ---
WENT TO BLOOD BANK TO GET BLOOD , LABORATORY [facility] WAS SCANNING BLOOD PRODUCT AND IT WAS NOT ISSUING BLOOD , WAITED 25 MIN IN BLOOD BANK, HE SAID HE WILL CALL ME WHEN BLOOD IS READY, WAIT FOR HIS CALL , WILL CONTINUE TO MONITOR PATIENT.
--- NOTE | 2022-01-22 00:38 | NUR ---
PATIENT IS LYING ON BED, NO ANY COMPLAIN OF PAIN OR SHORTNESS OF BREATH AT THIS TIME, CALL LIGHT IS WITHIN THE REACH, WILL CONTINUE TO MONITOR PATIENT.
--- NOTE | 2022-01-22 01:00 | NUR ---
CALL RAX IN LABORATORY TO ASK IF BLOOD IS READY, HE SAID GIVE ME 15 MIN I WILL CALL BACK WHEN IS READY, WAITING FOR HIS CALL BACK, WILL CONTINUE TO MONITOR PATIENT.
--- NOTE | 2022-01-22 02:10 | NUR ---
STARTED THE PATIENT BLOOD TRANSFUSION , VERIFIED WITH TWO LICENCE NURSE, PATIENT PRE TRANSFUSION VITAL SIGN IS WITHIN THE NORMAL RANGE, WILL MONITOR PATIENT VITAL SIGN PER BLOOD TRANSFUSION PROTOCOL, WILL CONTINUE TO MONITOR PATIENT.
--- NOTE | 2022-01-22 03:10 | NUR ---
PATIENT IS RECEIVING BLOOD TRANSFUSION SINCE LAST ONE HOUR , PATIENT VITAL SIGN IS WITHIN THE NORMAL RANGE, NO ANY COMPLAIN OF PAIN OR SHORTNESS OF BREATH, NO ANY COMPLAIN OF CHILLS AT THIS TIME, PATIENT IS ALERT AND ORIENTED X4 , CALL LIGHT IS WITHIN THE REACH, WILL CONTINUE TO MONITOR PATIENT.
[2022-01-22 04:00] VITALS: BP 108/61
--- NOTE | 2022-01-22 05:25 | NUR ---
PATIENT BLOOD TRANSFUSION IS FINISHED , NO ANY REACTION OF BLOOD TRANSFUSION NOTED, VITAL SIGN IS WITHIN THE NORMAL RANGE THROUGH OUT THE TRANSFUSION, CALL LIGHT IS WITHIN THE REACH, WILL CONTINUE TO MONITOR PATIENT.
[2022-01-22] MEDS: MIDODRINE 5 MG TAB PO SCH ×3 (06:25→19:05)
--- NOTE | 2022-01-22 07:05 | NUR ---
RECEIVED REPORT FROM DOVETAILER NURSE FOR CONTINUITY OF CARE. PT IS SLEEPING, EASILY AROUSABLE BY VERBAL STIMULI. BREATHING IS EVEN AND UNLABORED AT 2L NC. NO DISTRESS NOTED. PT HAS PICC LINE ON RIGHT FEMORAL INFUSING NS AT 80ML/HR. CALL LIGHT WITHIN REACH. SAFETY MEASURES ON PLACE. WILL CONTINUE TO MONITOR.
[2022-01-22 07:24] LABS: BASOPHILS % (AUTO) 0.2 % (0.0-2.0); CARBON DIOXIDE 22.3 mmol/L (21-32); EOSINOPHILS # (AUTO) 0.1 K/uL (0-0.4); EOSINOPHILS % (AUTO) 2.6 % (0.0-4.0); HEMATOCRIT 21.7 % (36-52); HEMOGLOBIN 7.4 g/dL (12.0-18.0); LYMPHOCYTES # (AUTO) 0.8 K/uL (2.0-11.5); LYMPHOCYTES % (AUTO) 14.4 % (20.5-51.1); MEAN CORPUSCULAR HEMOGLOBIN 33 pg (27-31); MEAN CORPUSCULAR HGB CONC 34 g/dL (33-37); MEAN CORPUSCULAR VOLUME 96.7 fL (80-94); MONOCYTES # (AUTO) 0.9 K/uL (0.8-1.0); NEUTROPHILS # (AUTO) 3.8 K/uL (1.8-7.7); NEUTROPHILS % (AUTO) 66.8 % (42.2-75.2); PLATELET COUNT (AUTO) 56 K/uL (140-450); POTASSIUM 3.3 mmol/L (3.5-5.1); RED BLOOD CELL COUNT(AUTO) 2.24 MIL/uL (4.20-6.10); RED CELL DISTRIBUTION WIDTH 19.1 % (11.6-13.7); WHITE BLOOD COUNT (AUTO) 5.7 K/uL (4.8-10.8)
--- NOTE | 2022-01-22 08:00 | NUR ---
DISCUSSED PLAN OF CARE WITH ALICIA SHAVER PT IS STABLE.
--- NOTE | 2022-01-22 08:03 | NUR ---
GAVE REPORT TO MORNING NURSE SIVAKUMAR FOR CONTINUOS OF CARE, PATIENT IS STABLE.
[2022-01-22] MEDS: SPIRONOLACTONE 50 MG TAB PO SCH (09:00)
[2022-01-22] MEDS ORDERED: POTASSIUM CHLORIDE 10 MEQ TABER PO SCH (09:10)
--- NOTE | 2022-01-22 09:10 | NUR ---
POTASSIUM LEVEL IS 3.3. GOT AN ORDER FROM DR TO GIVE KCL 20MEQ.
--- NOTE | 2022-01-22 10:05 | NUR ---
SPOKE TO RADIOLOGY/US TO CONFIRM PARACENTESIS. NURSE WAS INFORMED THAT THERE IS NO ENOUGH RFLUIDS TO DRAIN. THEY WILL CHECK BACK ON WEDNESDAY.
[2022-01-22] MEDS: FERROUS SULFATE 325 MG TABEC PO SCH ×2 (10:06→17:51)
[2022-01-22] MEDS: VANCOMYCIN 1,000 MG in DEXTROSE 5% 250 ML IV SCH ×2 (10:07→22:02)
[2022-01-22] MEDS: PANTOPRAZOLE 40 MG INJ VIAL IVP SCH ×2 (10:07→21:26)
[2022-01-22] MEDS: FUROSEMIDE 20 MG/2 ML VIAL IVP SCH ×2 (10:08→21:26)
--- NOTE | 2022-01-22 10:09 | NUR ---
ADMINISTERED SCHEDULED PO MEDS. HOLD SPIRONOLACTONE. SBP AT 100'S. PT TEACHING GIVEN. PT VERBALIZED UNDERSTANDING. PT A&O2, TO NAME AND PLACE. LEFT PT WITH RN AT BEDSIDE TO ADMINISTER IV MEDS. CALL LIGHT WITHIN REACH SAFETY MEASURES IN PLACE. WILL CONTINUE TO MONITOR.
[2022-01-22] MEDS: NACL 0.9% 500 ML IV SCH (12:00)
[2022-01-22] MEDS ORDERED: LACTULOSE 20 GM/30 ML UDC PO SCH (13:00)
--- NOTE | 2022-01-22 13:18 | NUR ---
ADMINISTERED MIDODRINE TO PT. PT BP 103/60. EXPLAINED MED TO PT. PT VERBALIZED UNDERSTANDING. PT TOLERATED WELL. NO DISTRESS NOTED. CALL LIGHT WITHIN REACH SAFETY MEASURES IN PLACE.
[2022-01-22 16:00] VITALS: BP 110/68
--- NOTE | 2022-01-22 16:10 | NUR ---
DID ROUNDS. PT RESTING IN BED. BREATHING EVEN AND UNLABORED. NO DISTRESS NOTED. NO COMPLAINTS OF PAIN. CALL LIGHT WITHIN REACH. SAFETY MEASURES IN PLACE. WILL CONTINUE TO MONITOR.
--- NOTE | 2022-01-22 19:06 | NUR ---
ADMINISTERED MIDODRINE TO PT. PT SBP 110. EXPLAINED MED TO PT. PT VERBALIZED UNDERSTANDING. PT TOLERATED WELL. PT SITTING IN BED, EATING DINNER. NO DISTRESS NOTED. CALL LIGHT WITHIN REACH. SAFETY PRECAUTIONS IN PLACE.
--- NOTE | 2022-01-22 19:25 | NUR ---
GAVE REPORT TO WET MACHINE TENDER NURSE FOR CONTINUITY OF CARE. ALL NEEDS MET THROUGHOUT SHIFT. PT IS STABLE.
[2022-01-22 20:00] VITALS: BP 115/68
[2022-01-22] MEDS: LACTULOSE 20 GM/30 ML UDC PO SCH (21:25)
[2022-01-23 04:00] VITALS: BP 122/69
[2022-01-23] MEDS: MIDODRINE 5 MG TAB PO SCH ×3 (06:09→19:04)
--- NOTE | 2022-01-23 07:26 | NUR ---
RECEIVED REPORT FROM RECREATION ADVISER NURSE FOR CONTINUITY OF CARE. PT IS AWAKE, IN BED. BREATHING EVEN AND UNLABORED ON 3L NC. NO DISTRESS NOTED. NO COMPLAINT OF PAIN. REPORTED PT DEFECATED AT NIGHT. PT HAS PICC LINE ON RIGHT FEMORAL VEIN, TKO. NOTED EDEMA ON LOWER EXTREMITIES. PT ON STANDARD PRECAUTION. CALL LIGHT WITHIN REACH. SAFETY MEASURES IN PLACE. WILL CONTINUE TO MONITOR.
[2022-01-23 07:32] LABS: BASOPHILS % (AUTO) 0.9 % (0.0-2.0); EOSINOPHILS # (AUTO) 0.2 K/uL (0-0.4); EOSINOPHILS % (AUTO) 3.9 % (0.0-4.0); HEMATOCRIT 21.7 % (36-52); HEMOGLOBIN 7.4 g/dL (12.0-18.0); LYMPHOCYTES # (AUTO) 0.9 K/uL (2.0-11.5); MEAN CORPUSCULAR HEMOGLOBIN 33 pg (27-31); MEAN CORPUSCULAR HGB CONC 34 g/dL (33-37); MEAN CORPUSCULAR VOLUME 96.9 fL (80-94); MONOCYTES # (AUTO) 0.6 K/uL (0.8-1.0); MONOCYTES % (AUTO) 11.8 % (1.7-9.3); NEUTROPHILS # (AUTO) 3.2 K/uL (1.8-7.7); NEUTROPHILS % (AUTO) 65.4 % (42.2-75.2); PLATELET COUNT (AUTO) 60 K/uL (140-450); RED BLOOD CELL COUNT(AUTO) 2.24 MIL/uL (4.20-6.10); RED CELL DISTRIBUTION WIDTH 19.5 % (11.6-13.7); WHITE BLOOD COUNT (AUTO) 4.9 K/uL (4.8-10.8)
[2022-01-23 07:37] LABS: ANION GAP 10.4 (8-16); POTASSIUM 3.4 mmol/L (3.5-5.1)
--- NOTE | 2022-01-23 08:00 | NUR ---
Patient's Plan of Care was discussed and reviewed with SEPARATOR TENDER: SIVAKUMAR SOLORIO
[2022-01-23] MEDS ORDERED: POTASSIUM CHLORIDE 10 MEQ TABER PO PRN (09:00)
--- NOTE | 2022-01-23 09:02 | NUR ---
POTASSIUM 3.4. DR MARIA SNYDERUR.
[2022-01-23] MEDS: PANTOPRAZOLE 40 MG INJ VIAL IVP SCH ×2 (09:05→20:33)
[2022-01-23] MEDS: FUROSEMIDE 20 MG/2 ML VIAL IVP SCH ×2 (09:05→20:33)
[2022-01-23] MEDS: SPIRONOLACTONE 50 MG TAB PO SCH (09:31)
[2022-01-23] MEDS: LACTULOSE 20 GM/30 ML UDC PO SCH ×2 (09:32→20:33)
[2022-01-23] MEDS: FERROUS SULFATE 325 MG TABEC PO SCH ×2 (09:32→17:34)
--- NOTE | 2022-01-23 09:41 | NUR ---
ADMINISTERED SCHEDULED MORNING MED. GAVE KDUR. PT TEACHING GIVEN. PT VERBALIZED UNDERSTANDING. PT TOLERATED WELL. LEFT PT SITTING COMFORTABLY IN BED, WATCHING TV. REMINDED TO USE THE BEDSIDE COMMODE. USE CALL LIGHT WHEN NEEDED HELP. SAFETY MEASURES IN PLACE. WILL CONTINUE TO MONITOR.
[2022-01-23] MEDS: VANCOMYCIN 1,000 MG in DEXTROSE 5% 250 ML IV SCH ×2 (10:09→21:55)
[2022-01-23] MEDS: NACL 0.9% 500 ML IV SCH (12:32)
--- NOTE | 2022-01-23 13:42 | NUR ---
ADMINISTERED SCHEDULED MIDODRINE TO PT. PT SBP 110s. EXPLAINED MED TO PT. PT VERBALIZED UNDERSTANDING. PT TOLERATED WELL. NO DISTRESS NOTED. CALL LIGHT WITHIN REACH SAFETY MEASURES IN PLACE.
--- NOTE | 2022-01-23 15:20 | NUR ---
PT SITTING IN BED. WATCHING TV. NO DISTRESS NOTED. NO COMPLAINT OF PAIN. CALL LIGHT WITHIN REACH. SAFETY PRECAUTIONS IN PLACE. WILL CONTINUE TO MONITOR.
[2022-01-23 16:00] VITALS: BP 114/65
--- NOTE | 2022-01-23 16:17 | NUR ---
DC PLANNING PATIENT IS A 61 YR OLD MALE ARRIVED TO [facility] ON 01/17/22 WITH COMPLAINTS OF BODY ACHES. PATIENT HAS A HX OF ALCOHOL ABUSE CIRRHOSIS SW MET WITH PATIENT AT BEDSIDE TO GATHER COLLATERAL INFORMATION. PATIENT REPORTS EXPERIENCING HOMELESSNESS FOR THE LAST 6 YEARS. PATIENT REPORTS PREVIOUSLY STAYING IN [facility] HOWEVER, REPORTED BAD EXPERIENCE WITH [facility]. PATIENT CLARIFIED THAT EMERGENCY CONTACT AND MEDICAL DECISION MAKER BELKYS PICKARD (FRIEND) [phone]. PATIENT DENIES AD IN PLACE AND DECLINED AD PACKET OFFERED BY [facility]. PATIENT CURRENTLY HAS PRESUMPTIVE AND MEDI[facility] AND IS WORKING WITH PATIENT BENEFIT ADVISOR ON ACQUIRING EMERGENCY MEDICAL.PATIENT REPORTS PREVIOUS TO THIS VISIT BEING AMBULATORY WITH DME ASSISTANCE; CANE.PATIENT REPORTS BEING SOBER FOR THE LAST FOUR WEEKS HIS HEALTH IS QUICKLY DETERIORATING.PATIENT REPORTS HX OF SUBSTANCE USE WITH DRUG OF CHOICE PRIMARILY BEING METH. PATIENT REPORTS HE HAS NOT USED METH IN THE LAST TWO MONTHS. CELINE IS WORKING TO IDENTIFY HOSPICE CARE FOR PATIENT. PATIENT IS AWARE AND IS REQUESTING THAT SISTER BE NOTIFIED. Addendum: 01/23/22 at 1625 by Sreekanth Andres SS [facility] OUTREACHED TO PATIENTS EMERGENCY CONTACT BELKYS PICKARD WHO PROVIDED PHONE NUMBER TO PATIENTS SISTER GALE AT [phone] OR [phone] Addendum: 01/23/22 at 1635 by Sreekanth MOTT SW ATTEMPTED TO REACH PATIENTS SISTER HOWEVER WAS UNABLE TO REACH. SW PROVIDED PATIENT WITH SISTERS PHONE NUMBER AND ENCOURAGED PATIENT TO GET IN TOUCH WITH HER
--- NOTE | 2022-01-23 17:27 | NUR ---
P.T. NOTES P.T. EVAL COMPLETED; REFER TO EVAL FOR DETAILS.
--- NOTE | 2022-01-23 19:06 | NUR ---
ADMINISTERED SCHEDULED MIDODRINE TO PT. PT SBP 110s. EXPLAINED MED TO PT. PT VERBALIZED UNDERSTANDING. PT TOLERATED WELL. NO DISTRESS NOTED. CALL LIGHT WITHIN REACH SAFETY MEASURES IN PLACE
--- NOTE | 2022-01-23 19:25 | NUR ---
GAVE REPORT TO SIGN SHOP SUPERVISOR NURSE FOR CONTINUITY OF CARE. ALL NEEDS MET THROUGHOUT SHIFT. PT IS STABLE.
[2022-01-23 20:00] VITALS: BP 120/74
--- NOTE | 2022-01-23 20:00 | NUR ---
RECEIVED REPORT OF PT IN STABLE CONDITION.RESP UNLABORED.CALL LIGHT IN REACH.IVF AT TKO RATE INFUSING.NO S/S OF ANY DISTRESS NOTED.WILL CONTINUE MONITORING.
--- NOTE | 2022-01-24 00:30 | NUR ---
PT IS RESTING.NO ANY DISTRESS NOTED.VS STABLE.
[2022-01-24 04:00] VITALS: BP 102/63
[2022-01-24] MEDS ORDERED: MIDODRINE 5 MG TAB ONE (06:07)
[2022-01-24] MEDS: MIDODRINE 5 MG TAB PO SCH ×3 (06:44→18:09)
--- NOTE | 2022-01-24 06:46 | NUR ---
CONDITION STABLE.NO DISTRESS NOTED.SLEPT WELL.
[2022-01-24 07:25] LABS: BASOPHILS # (AUTO) 0.1 K/uL (0.00-0.22); BASOPHILS % (AUTO) 1.1 % (0.0-2.0); EOSINOPHILS # (AUTO) 0.2 K/uL (0-0.4); EOSINOPHILS % (AUTO) 3.3 % (0.0-4.0); HEMATOCRIT 24.3 % (36-52); HEMOGLOBIN 8.3 g/dL (12.0-18.0); LYMPHOCYTES % (AUTO) 14.2 % (20.5-51.1); MEAN CORPUSCULAR HEMOGLOBIN 33 pg (27-31); MEAN CORPUSCULAR HGB CONC 34 g/dL (33-37); MEAN CORPUSCULAR VOLUME 97.7 fL (80-94); MONOCYTES # (AUTO) 0.8 K/uL (0.8-1.0); MONOCYTES % (AUTO) 10.8 % (1.7-9.3); NEUTROPHILS # (AUTO) 5.2 K/uL (1.8-7.7); NEUTROPHILS % (AUTO) 70.6 % (42.2-75.2); PLATELET COUNT (AUTO) 79 K/uL (140-450); RED BLOOD CELL COUNT(AUTO) 2.49 MIL/uL (4.20-6.10); RED CELL DISTRIBUTION WIDTH 19.5 % (11.6-13.7); WHITE BLOOD COUNT (AUTO) 7.4 K/uL (4.8-10.8)
--- NOTE | 2022-01-24 07:32 | NUR ---
ENDORSED TO CORKY BUENROSTRO IN STABLE CONDITION
--- NOTE | 2022-01-24 07:34 | NUR ---
RECEIVED REPORT OF PT IN STABLE CONDITION.RESP UNLABORED. NO RESP DISTRESS NOTED. IVF INFUSING WELL. NO S/S OF ANY DISTRESS NOTED. PLAN OF CARE DISCUSSED. SAFETY PRECAUTIONS IN PLACE. CALL LIGHT WITHIN REACH. WILL CONTINUE MONITORING.
[2022-01-24 07:35] LABS: ANION GAP 11.6 (8-16); CARBON DIOXIDE 23.4 mmol/L (21-32); CREATININE 1.3 mg/dL (0.6-1.3)
[2022-01-24 08:00] VITALS: BP 109/62
[2022-01-24 09:03] LABS: PHOSPHORUS 2.6 mg/dL (2.5-4.9)
[2022-01-24] MEDS: SPIRONOLACTONE 50 MG TAB PO SCH (09:05)
[2022-01-24] MEDS: LACTULOSE 20 GM/30 ML UDC PO SCH ×2 (09:05→21:22)
[2022-01-24] MEDS: FERROUS SULFATE 325 MG TABEC PO SCH ×2 (09:05→18:09)
[2022-01-24] MEDS: PANTOPRAZOLE 40 MG INJ VIAL IVP SCH ×2 (09:06→21:21)
[2022-01-24] MEDS: FUROSEMIDE 20 MG/2 ML VIAL IVP SCH ×2 (09:07→21:00)
--- NOTE | 2022-01-24 09:10 | NUR ---
ALL SCHEDULED MEDS GIVEN. PT IS STABLE. NO DISTRESS NOTED. WILL CONTINUE TO MONITOR.
[2022-01-24] MEDS: VANCOMYCIN 1,000 MG in DEXTROSE 5% 250 ML IV SCH ×2 (10:26→22:47)
[2022-01-24] MEDS: NACL 0.9% 500 ML IV SCH (11:53)
--- NOTE | 2022-01-24 13:30 | NUR ---
ALL SCHEDULED MEDS GIVEN. PT IS STABLE. NO DISTRESS NOTED. WILL CONTINUE TO MONITOR.
[2022-01-24 16:00] VITALS: BP 111/68
--- NOTE | 2022-01-24 17:51 | NUR ---
CHECKED ON PATIENT. PT IS STABLE. NO DISTRESS NOTED. WILL CONTINUE TO MONITOR.
--- NOTE | 2022-01-24 19:30 | NUR ---
RECEIVED BEDSIDE REPORT FROM DAY SHIFT RN FOR CONTINUITY OF CARE. PT IS AWAKE. PT IS NOT IN ANY ACUTE DISTRESS. PLAN OF CARE DISCUSSED. PT IS ON 2L NC. CALL LIGHT WITHIN REACH. ALL SAFETY MEASURES TAKEN. WILL CONTINUE TO MONITOR THE PT.
--- NOTE | 2022-01-24 19:40 | NUR ---
ENDORSED TO RUBBER TIRE AND TUBES SUPERVISOR NURSE FOR CONTINUITY OF CARE. PT IS STABLE.
[2022-01-24 20:00] VITALS: BP 102/57
--- NOTE | 2022-01-24 21:28 | NUR ---
PT REFUSED LACTULOSE. LASIX WAS HOLD FOR LOW BLOOD PRESSURE 98/65. PROTONIX WAS GIVEN.
--- NOTE | 2022-01-25 03:32 | NUR ---
PT WAS CLEANED AND CHANGED. NO OTHER COMPLAINS. WILL CONTINUE TO MONITOR THE PT.
[2022-01-25 04:00] VITALS: BP 106/69
--- NOTE | 2022-01-25 04:35 | NUR ---
PT WAS HELPED TO BEDSIDE COMMODE. NO OTHER COMPLAINS FROM THE PT. WILL CONTINUE TO MONITOR THE PT.
[2022-01-25] MEDS: MIDODRINE 5 MG TAB PO SCH ×3 (06:03→18:11)
[2022-01-25 07:09] LABS: BASOPHILS # (AUTO) 0.1 K/uL (0.00-0.22); BASOPHILS % (AUTO) 1.1 % (0.0-2.0); EOSINOPHILS # (AUTO) 0.2 K/uL (0-0.4); EOSINOPHILS % (AUTO) 3.1 % (0.0-4.0); HEMATOCRIT 23.2 % (36-52); HEMOGLOBIN 7.9 g/dL (12.0-18.0); LYMPHOCYTES # (AUTO) 0.8 K/uL (2.0-11.5); MEAN CORPUSCULAR HEMOGLOBIN 33 pg (27-31); MEAN CORPUSCULAR HGB CONC 34 g/dL (33-37); MEAN CORPUSCULAR VOLUME 97.9 fL (80-94); MONOCYTES # (AUTO) 0.8 K/uL (0.8-1.0); NEUTROPHILS # (AUTO) 6.1 K/uL (1.8-7.7); PLATELET COUNT (AUTO) 87 K/uL (140-450); RED BLOOD CELL COUNT(AUTO) 2.37 MIL/uL (4.20-6.10); RED CELL DISTRIBUTION WIDTH 19.6 % (11.6-13.7)
[2022-01-25 07:22] LABS: ANION GAP 10.5 (8-16); CARBON DIOXIDE 22.2 mmol/L (21-32); CREATININE 1.6 mg/dL (0.6-1.3); POTASSIUM 3.7 mmol/L (3.5-5.1)
--- NOTE | 2022-01-25 07:25 | NUR ---
RECEIVED REPORT FROM NIGHTSHIFT NURSE FOR CONTINUITY OF CARE. PLAN OF CARE DISCUSSED. PT CURRENTLY SLEEPING BUT EASILY AROUSED. PT A/OX3, BREATHING EVEN, REGULAR, AND UNLABORED ON 2L NC. SKIN INTACT, PT DENIES PAIN AT THIS TIME. PT AMBULATORY, AND CONTINENT OF THE BOWEL AND BLADDER WITH BEDSIDE COMMODE. PT IN STABLE CONDITION.
--- NOTE | 2022-01-25 07:25 | NUR ---
ENDORSED PT TO DAY SHIFT RN FOR CONTINUITY OF CARE. PT IS STABLE.
[2022-01-25 08:00] VITALS: BP 100/65
[2022-01-25 08:00] LABS: LYMPHOCYTES % (AUTO) 9.5 % (20.5-51.1); MONOCYTES % (AUTO) 10.4 % (1.7-9.3); NEUTROPHILS % (AUTO) 75.9 % (42.2-75.2)
[2022-01-25] MEDS: LACTULOSE 20 GM/30 ML UDC PO SCH ×2 (09:02→20:13)
[2022-01-25] MEDS: PANTOPRAZOLE 40 MG INJ VIAL IVP SCH ×2 (09:03→20:13)
[2022-01-25] MEDS: FERROUS SULFATE 325 MG TABEC PO SCH ×2 (09:06→18:07)
--- NOTE | 2022-01-25 09:22 | NUR ---
NOTIFIED MANAGEMENT TECH MD ABOUT PT'S KLOW HGB OF 7.9. AWAITING CALLBACK.
--- NOTE | 2022-01-25 09:32 | NUR ---
NOTIFIED PHARMACY REGARDING WHETHER PT REQUIRES VANCO TROUGH FOR NEXT DOSE. PER PHARMACIST, NEXT VANCO DOSE WAS DISCONTINUED.
[2022-01-25] MEDS: FUROSEMIDE 20 MG/2 ML VIAL IVP SCH ×2 (09:36→20:15)
[2022-01-25] MEDS: SPIRONOLACTONE 50 MG TAB PO SCH (09:36)
--- NOTE | 2022-01-25 11:50 | NUR ---
PT VISUALLY ASSESSED, NO PAIN OR DISTRESS NOTED AT THIS TIME. PT IN STABLE CONDITION.
[2022-01-25] MEDS: NACL 0.9% 500 ML IV SCH (12:19)
--- NOTE | 2022-01-25 14:00 | NUR ---
PT VISUALLY ASSESSED. NO DISTRESS OR PAIN NOTED AT THIS TIME. PT IN STABLE CONDITION.
--- NOTE | 2022-01-25 16:47 | NUR ---
PT VISUALLY ASSESSED. NO DISTRESS OR PAIN NOTED AT THIS TIME. PT IN STABLE CONDITION.
--- NOTE | 2022-01-25 18:00 | NUR ---
PT VISUALLY ASSESSED. NO DISTRESS OR PAIN NOTED AT THIS TIME. PT IN STABLE CONDITION.
--- NOTE | 2022-01-25 19:48 | NUR ---
ENDORSED PT TO NIGHTSHIFT NURSE FOR CONTINUITY OF CARE. PT IN STABLE CONDITION.
[2022-01-25 20:00] VITALS: BP 114/65
--- NOTE | 2022-01-25 20:45 | NUR ---
PATIENT IS LYING ON BED, VITAL SIGN IS WITHIN THE NORMAL RANGE, NO ANY COMPLAIN OF PAIN OR SHORTNESS OF BREATH AT THIS TIME, ALL SCHEDULE MEDICATION IS GIVEN PER DOCTOR ORDER, CALL LIGHT IS WITHIN THE REACH, WILL CONTINUE TO MONITOR PATIENT.
[2022-01-25] MEDS ORDERED: VANCOMYCIN HCL 1.25 GM in DEXTROSE 5% 250 ML IV SCH (22:00)
--- NOTE | 2022-01-26 00:45 | NUR ---
PATIENT IS LYING ON BED, NO ANY COMPLAIN OF PAIN OR SHORTNESS OF BREATH AT THIS TIME, CALL LIGHT IS WITHIN THE REACH ,WILL CONTINUE TO MONITOR PATIENT.
[2022-01-26 04:00] VITALS: BP 105/67
--- NOTE | 2022-01-26 04:15 | NUR ---
PATIENT IS LYING ON BED, NO ANY COMPLAIN OF PAIN OR SHORTNESS OF BREATH AT THIS TIME,VITAL SIGN IS WITHIN THE NORMAL RANGE, CALL LIGHT IS WITHIN THE REACH ,WILL CONTINUE TO MONITOR PATIENT.
[2022-01-26] MEDS: MIDODRINE 5 MG TAB PO SCH (06:34)
--- NOTE | 2022-01-26 06:35 | NUR ---
PATIENT IS LYING ON BED, ALL SCHEDULE MEDICATION IS GIVEN PER DOCTOR ORDER, CALL LIGHT IS WITHIN THE REACH, WILL CONTINUE TO MONITOR PATIENT.
[2022-01-26 07:30] LABS: ANION GAP 10.6 (8-16); CARBON DIOXIDE 23.1 mmol/L (21-32); CREATININE 2.1 mg/dL (0.6-1.3); POTASSIUM 3.7 mmol/L (3.5-5.1)
--- NOTE | 2022-01-26 07:37 | NUR ---
GAVE REPORT TO MORNING NURSE ADELFO FOR CONTINUOS OF CARE, PATIENT IS STABLE.
--- NOTE | 2022-01-26 07:40 | NUR ---
RECEIVED PT FROM NIGHT RN, PT IS ASLEEP, VISIBLE CHEST RISE AND FALL, RESPIRATION IS EVEN, ON O2 2L NC, RIGHT FEMORAL CENTRAL LINE IN PLACE, SIDE RAILS ARE UP AND CALL LIGHT WITHIN REACH, BEDSIDE COMMODE NOTED, NO SIGN OF DISTRESS NOTED AND WILL CONTINUE TO MONITOR PT.
[2022-01-26 07:43] LABS: BASOPHILS # (AUTO) 0.1 K/uL (0.00-0.22); BASOPHILS % (AUTO) 1.2 % (0.0-2.0); EOSINOPHILS # (AUTO) 0.3 K/uL (0-0.4); EOSINOPHILS % (AUTO) 3.6 % (0.0-4.0); HEMOGLOBIN 7.5 g/dL (12.0-18.0); LYMPHOCYTES % (AUTO) 11.1 % (20.5-51.1); MEAN CORPUSCULAR HEMOGLOBIN 33 pg (27-31); MEAN CORPUSCULAR HGB CONC 34 g/dL (33-37); MEAN CORPUSCULAR VOLUME 97.3 fL (80-94); NEUTROPHILS # (AUTO) 6.2 K/uL (1.8-7.7); NEUTROPHILS % (AUTO) 72.1 % (42.2-75.2); PLATELET COUNT (AUTO) 94 K/uL (140-450); RED BLOOD CELL COUNT(AUTO) 2.26 MIL/uL (4.20-6.10); RED CELL DISTRIBUTION WIDTH 19.4 % (11.6-13.7); WHITE BLOOD COUNT (AUTO) 8.6 K/uL (4.8-10.8)
[2022-01-26 08:00] VITALS: BP 94/59
--- NOTE | 2022-01-26 08:28 | NUR ---
PT IS WALKING FROM ROOM TO HALLWAY NOW WITH PHYSICAL THERAPY.
--- NOTE | 2022-01-26 09:02 | NUR ---
DR. GOMEZ CAME TO THE PT'S ROOM AND SPOKE TO PT AND TOLD PT THAT HE HELD THE LASIX AND SAID THAT HE THINK THAT A LOT OF FLUID WAS DRAINED FROM PT THAT CAUSE HIS KIDNEY FUNCTION TO BE LOW. AND PT VERBALIZED UNDERSTANDING.
[2022-01-26] MEDS: PANTOPRAZOLE 40 MG INJ VIAL IVP SCH (09:05)
[2022-01-26] MEDS: LACTULOSE 20 GM/30 ML UDC PO SCH (09:05)
[2022-01-26] MEDS: FERROUS SULFATE 325 MG TABEC PO SCH (09:06)
[2022-01-26] MEDS: SPIRONOLACTONE 50 MG TAB PO SCH (09:06)
--- NOTE | 2022-01-26 09:06 | NUR ---
PT WAS GIVENTHE SCHEDULED AM MEDICATIONS, PT TOLERATED, ALL NEEDS OF PT ARE MET AT THIS TIME.
[2022-01-26] MEDS ORDERED: LACT10SO86 PO (10:20)
[2022-01-26] MEDS ORDERED: FURO-572 PO (10:20)
[2022-01-26] MEDS ORDERED: PRO5 PO (10:20)
--- NOTE | 2022-01-26 11:48 | NUR ---
PHYSICAL THERAPY CO-SIGN The Physical Therapy Progress Notes documented by Track Repairer Helper have been reviewed. Reviewed/Co-Signed by: Prachi Sy Documentation Done by: VISHNU MOELLER PTA Addendum: 01/26/22 at 1148 by Prachi Sy PT Amended: Links added.
--- NOTE | 2022-01-26 13:40 | NUR ---
DISCHARGED PT TRANSPORTED BY ER, FEMORAL CENTRAL LINE WAS REMOVED, AND WAS REINFORCED WITH DRESSING, PRESSURE WAS APPLIED ON THE FEMORAL ARTERY, NO BLEEDING NOTED ANYMORE, DISCHARGE INSTRUCTIONS GIVEN TO PT AND PT VERBALIZED UNDERSTANDING. PT IS STABLE AT THIS TIME.
== END 2022-01-26 13:40 | disposition home or self-care (01) | DRG 720 ==
LOC: MED 06:47 → MTU 11:07 → MIC 01-19 06:22 → MTU 01-20 01:20
PROVIDERS: ADMIT Student in an Organized Health Care Education/Training Program; ATTEND Student in an Organized Health Care Education/Training Program
PROC: 02HV33Z Insertion of Infusion Device into Superior Vena Cava, Percutaneous Approach (ICD-10-PCS; principal; 2022-01-17)
PROC: B548ZZA Ultrasonography of Superior Vena Cava, Guidance (ICD-10-PCS; 2022-01-17)
PROC: 06HY33Z Insertion of Infusion Device into Lower Vein, Percutaneous Approach (ICD-10-PCS; 2022-01-18)
PROC: B54BZZA Ultrasonography of Right Lower Extremity Veins, Guidance (ICD-10-PCS; 2022-01-18)
PROC: 0W9G3ZZ Drainage of Peritoneal Cavity, Percutaneous Approach (ICD-10-PCS; 2022-01-21)
PROC: 30233N1 Transfusion of Nonautologous Red Blood Cells into Peripheral Vein, Percutaneous Approach (ICD-10-PCS; 2022-01-22)
DX: A41.59 Other Gram-negative sepsis (principal); N17.0 Acute kidney failure with tubular necrosis; J96.00 Acute respiratory failure, unspecified whether with hypoxia or hypercapnia; R65.21 Severe sepsis with septic shock; E43 Unspecified severe protein-calorie malnutrition; D69.6 Thrombocytopenia, unspecified; E83.51 Hypocalcemia; D63.8 Anemia in other chronic diseases classified elsewhere; I85.00 Esophageal varices without bleeding; J18.9 Pneumonia, unspecified organism; N39.0 Urinary tract infection, site not specified; K43.9 Ventral hernia without obstruction or gangrene; K70.31 Alcoholic cirrhosis of liver with ascites; E87.1 Hypo-osmolality and hyponatremia; K76.6 Portal hypertension; L03.311 Cellulitis of abdominal wall; K52.9 Noninfective gastroenteritis and colitis, unspecified; K80.20 Calculus of gallbladder without cholecystitis without obstruction; Z20.822 Contact with and (suspected) exposure to COVID-19; E78.5 Hyperlipidemia, unspecified; E80.6 Other disorders of bilirubin metabolism; F10.10 Alcohol abuse, uncomplicated; Y90.9 Presence of alcohol in blood, level not specified; Z87.891 Personal history of nicotine dependence; Z86.14 Personal history of Methicillin resistant Staphylococcus aureus infection
CPT/HCPCS: 36415; 36556; 49083; 71045; 71250; 74150; 76705; 76770; 80048; 80053; 80202; 81001; 82140; 82570; 82607; 82728; 82746; 82803; 83540; 83605; 83735; 83880; 84100; 84156; 84300; 84484; 85018; 85025; 85045; 85610; 85730; 86886; 86900; 86901; 86920; 87040; 87081; 87086; 93005; 96361; 96365; 96375; 97110; 97112; 97116; 97530; 99285; C9113; J0456; J0696; J1885; J1940; J2001; J2270; J2543; J3370; J3490; J7030; J7060; P9016; P9046; Q0092